=== PATIENT | male | born 1945 | race Caucasian/White ===

== ENCOUNTER 2017-01-02 22:02 | Inpatient (IN) | payer OTHER ==
[2017-01-02] MEDS ORDERED: CARDIZEM INJ 50 MG VIAL IVP ONE (22:29)
[2017-01-02] MEDS ORDERED: CARDIZEM INJ 50 MG VIAL ONE (22:30)
[2017-01-02] MEDS ORDERED: CARDIZEM INJ 125 MG VIAL 125 MG in NS 100 ML IV 100 ML IV PRN (22:30)
--- NOTE | 2017-01-02 22:31 | DR.GENAD ---
HPI - PCP Primary Care Physician: monae - Complaint/Symptoms Chief Complaint:: fluttering in chest, weakness Self Treatment fo Chief Complaint: patient hazs taken 3 low dose aspirin and a tylenol for a headache - Nurses notes reviewed Nurses Notes Review: Yes - Source History Provided: Patient - Mode of Arrival Mode of Arrival: Ambulatory - Timing Onset of Chief Complaint: 01/02/17 Came on: Suddenly - Duration Duration: Constant Duration: Minutes - Location Location: chest - Severity Severity: Moderate - Modifying Factors Improves:: oxygen - Associated Signs and Symptoms Associated Signs and Symptoms: dyspnea - Other History Other History: atrial fibrillation PMH - PMH Past Medical History: Yes Past Medical History: Hypertension, Hypothyroidism, Sleep Apnea Past Surgical History: Yes Surgical History: Ortho Surgery, Tonsillectomy Past Surgical History Comment: joint implant in left great toe, surgery on right big toe, right shoulder 3 years ago, right knee replacement 8.5 years agoacl replaced 20 years ago - Family History History of Family Medical Conditions: Yes Family Medical History: Diabetes Mellitus, Cancer, [place], Coronary Artery Disease, Hypertension - Social History Does patient currently use any type of tobacco product: No Have you used tobacco products in the last 12 months: No Type of Tobacco Use: None Does any household member use tobacco: No Alcohol Use: None Do you use any recreational Drugs:: No Lives With: Family Lives Where: Home - infectious screening In the last 2 months have you had wt loss of >10#?: NO Have you had fever, night sweats or hemotysis?: No Have you traveled outside the country in the last 6 months?: No Isolation: Standard ROS - Review of Systems Constitutional: No Symptoms Reported Eyes: No Symptoms Reported ENTM: No Symptoms Reported Respiratoy: No Symptoms Reported Cardiovascular: Palpitations Gastrointestinal/Abdominal: No Symptoms Reported Genitourinary: No Symptoms Reported Neurological: No Symptoms Reported Musculoskeletal: No Symptoms Reported Integumentary: No Symptoms Reported Hematologic/Lymphatic: No Symptoms Reported Endocrine: No Symptoms Reported Psychiatric: No Symptoms Reported All Other Systems: Reviewed and Negative PE - Vital Signs Vitals: Blood Pressure [Right Arm] 116/73 Blood Pressure 171/101 - General Limitations: No Limitations General Appearance: Alert - Head Head Exam: Normal Inspection - Eyes Eye exam: Normal Appearance, EOMI. negative: Scleral Icterus, Conjunctival Injection - ENT ENT Exam: Normal Exam External Ear Exam: Normal External Inspection Nose Exam: Normal Nose Exam Mouth Exam: Normal Inspection Throat Exam: Normal Inspection - Neck Neck Exam: Normal Inspection, Full ROM - Chest Chest Inspection: Normal Inspection, Symmetric Chest Wall Rise. negative: Tenderness - Respiratory Respiratory Exam: Normal Lung Sounds Bilat. negative: Accessory Muscle Use, Respiratory Distress Respiratory Exam: Bilateral Clear to Auscultation - Cardiovascular Cardiovascular Exam: Tachycardia - Abdominal Exam Abdominal Exam: Normal Inspection, Normal Bowel Sounds, Soft - Extremities Extremities Exam: Normal Inspection - Back Back Exam: Normal Inspection, Full ROM - Neurologic Neurological Exam: Alert, Oriented X3, CN II-XII Intact - Psychiatric Psychiatric Exam: Normal Affect - Skin Skin Exam: Intact, Normal Color Course - Consultation Called: 23:40 Call Returned: 23:41 Consultation Comments: discussed with observation diltiazem ROR - Labs Reviewed Result Diagrams: 01/02/17 22:45 01/02/17 22:45 Laboratory: WBC 6.5 X10^3/uL (3.6-10.0) 01/02/17 22:45 RBC 4.59 X10^6/uL (4.7-6.0) L 01/02/17 22:45 Hgb 14.9 g/dL (13.5-18.0) 01/02/17 22:45 Hct 42.3 % (42.0-54.0) 01/02/17 22:45 MCV 92.2 fL (80.0-100.0) 01/02/17 22:45 MCH 32.5 pg (27.0-34.0) 01/02/17 22:45 MCHC 35.3 g/dL (33.0-35.0) H 01/02/17 22:45 RDW 13.8 % (11.6-16.5) 01/02/17 22:45 Plt Count 191 X10^3/uL (150.0-450.0) 01/02/17 22:45 MPV 7.8 fL (7.4-11.0) 01/02/17 22:45 Neut % 41.7 % (42.0-75.0) L 01/02/17 22:45 Lymph % 40.1 % (21.0-51.0) 01/02/17 22:45 [place] % 11.1 % (0.0-13.0) 01/02/17 22:45 Eos % 6.4 % (0.9-2.9) H 01/02/17 22:45 Baso % 0.7 % (0.2-1.0) 01/02/17 22:45 Neut # 2.7 x10^3/uL (2.2-4.8) 01/02/17 22:45 Lymph # 2.6 X10^3/uL (1.3-2.9) 01/02/17 22:45 [place] # 0.7 x10^3/uL (0.3-0.8) 01/02/17 22:45 Eos # 0.4 x10^3/uL (0.0-0.2) H 01/02/17 22:45 Baso # 0.0 X10^3/uL (0.0-0.1) 01/02/17 22:45 Absolute Nucleated RBC 0.0 /100WBC 01/02/17 22:45 INR Target Range - 01/02/17 22:45 INR 1.00 (0.8-1.3) 01/02/17 22:45 PTT 31.1 SECONDS (22.9-36.5) 01/02/17 22:45 PTT Comment - 01/02/17 22:45 Sodium 144 mmol/L (136-145) 01/02/17 22:45 Corrected Sodium TNP 01/02/17 22:45 Potassium 4.2 mmol/L (3.5-5.1) 01/02/17 22:45 Chloride 108 mmol/L (98-107) H 01/02/17 22:45 Carbon Dioxide 27.6 mmol/L (21-32) 01/02/17 22:45 BUN 17 mg/dL (7-18) 01/02/17 22:45 Creatinine 1.38 mg/dL (0.70-1.30) H 01/02/17 22:45 Est GFR (MDRD) Af Amer > 60 (>60) 01/02/17 22:45 Est GFR (MDRD) Non-Af 54 (>60) L 01/02/17 22:45 Glucose 92 mg/dL (65-99) 01/02/17 22:45 Calcium 9.2 mg/dL (8.5-10.1) 01/02/17 22:45 Corrected Calcium TNP 01/02/17 22:45 Magnesium 1.8 mg/dL (1.7-2.9) 01/02/17 22:45 Total Bilirubin 0.50 mg/dL (0.2-1.0) 01/02/17 22:45 AST 24 Units/L (15-37) 01/02/17 22:45 ALT 32 Units/L (12-78) 01/02/17 22:45 Alkaline Phosphatase 79 Units/L (46-116) 01/02/17 22:45 Creatine Kinase 136 Units/L (39-308) 01/02/17 22:45 CK-MB (CK-2) < 1.0 ng/mL (0-4.0) 01/02/17 22:45 CK/CKMB % Calc 0.7 % (<4) 01/02/17 22:45 Troponin I < 0.02 ng/mL (0-1.5) 01/02/17 22:45 Total Protein 7.0 g/dL (6.4-8.2) 01/02/17 22:45 Albumin 3.4 g/dL (3.4-5.0) 01/02/17 22:45 Globulin 3.6 g/dL (2.5-4.5) 01/02/17 22:45 Albumin/Globulin Ratio 0.9 Ratio (1.1-2.1) L 01/02/17 22:45 - XRAY XRAY Interpreted by: Self XRAY Findings: Chest: normal - EKG Rate: 120 [place]: Normal Rhythm: Afib Block: None ST: Nonsp - Diagnosis Discharge Problem: Atrial fibrillation Qualifiers: Atrial fibrillation type: paroxysmal Qualified Code(s): I48.0 - Paroxysmal atrial fibrillation - Discharge Plan Condition: Stable - Follow ups/Referrals Follow ups/Referrals: BARBARA BHATTI [Primary Care Provider] - 3 days - Instructions
[2017-01-02] MEDS ORDERED: NS 100 ML IV 100 ML IV ONE (22:47)
[2017-01-02] MEDS ORDERED: CARDIZEM INJ 125 MG VIAL ONE (22:47)
[2017-01-02 22:59] LABS: BASOPHILS % (AUTO) 0.7 % (0.2-1.0); EOSINOPHILS # (AUTO) 0.4 x10^3/uL (0.0-0.2); EOSINOPHILS % (AUTO) 6.4 % (0.9-2.9); HEMATOCRIT 42.3 % (42.0-54.0); HEMOGLOBIN 14.9 g/dL (13.5-18.0); LYMPHOCYTES # (AUTO) 2.6 X10^3/uL (1.3-2.9); LYMPHOCYTES % (AUTO) 40.1 % (21.0-51.0); MEAN CORPUSCULAR HEMOGLOBIN 32.5 pg (27.0-34.0); MEAN CORPUSCULAR HGB CONC 35.3 g/dL (33.0-35.0); MEAN CORPUSCULAR VOLUME 92.2 fL (80.0-100.0); MEAN PLATELET VOLUME 7.8 fL (7.4-11.0); MONOCYTES # (AUTO) 0.7 x10^3/uL (0.3-0.8); MONOCYTES % (AUTO) 11.1 % (0.0-13.0); NEUTROPHILS # (AUTO) 2.7 x10^3/uL (2.2-4.8); NEUTROPHILS % (AUTO) 41.7 % (42.0-75.0); PLATELET COUNT 191 X10^3/uL (150.0-450.0); RED BLOOD COUNT 4.59 X10^6/uL (4.7-6.0); RED CELL DISTRIBUTION WIDTH 13.8 % (11.6-16.5); WHITE BLOOD COUNT 6.5 X10^3/uL (3.6-10.0)
[2017-01-02] MEDS ORDERED: NS 1000 ML 1,000 ML IV SCH (23:00)
[2017-01-02 23:16] LABS: BLOOD UREA NITROGEN 17 mg/dL (7-18); CALCIUM 9.2 mg/dL (8.5-10.1); CARBON DIOXIDE 27.6 mmol/L (21-32); CHLORIDE 108 mmol/L (98-107); CREATININE 1.38 mg/dL (0.70-1.30); GLUCOSE 92 mg/dL (65-99); SODIUM 144 mmol/L (136-145); TROPONIN I < 0.02 ng/mL (0-1.5); eGFR BLACK RACES > 60 (>60); eGFR NON BLACK RACES 54 (>60)
[2017-01-02 23:19] LABS: ALANINE AMINOTRANSFERASE 32 Units/L (12-78); ALBUMIN 3.4 g/dL (3.4-5.0); ALKALINE PHOSPHATASE 79 Units/L (46-116); ASPARTATE AMINO TRANSFERASE 24 Units/L (15-37); CKMB % 0.7 % (<4); CREATINE KINASE 136 Units/L (39-308); CREATINE KINASE MB < 1.0 ng/mL (0-4.0); MAGNESIUM 1.8 mg/dL (1.7-2.9)
--- NOTE | 2017-01-02 23:41 | RAD ---
HISTORY: 71-year-old male with shortness of breath. Study: Single frontal view of the chest. Comparison: Chest radiographs July 17, 2015 Findings: The trachea is midline. The cardiac silhouette is stable. Low lung volumes without focal consolida tion, effusion or pneumothorax. The bony thorax is unremarkable. IMPRESSION: 1. No acute cardiopulmonary disease. Reported By:
[2017-01-03] MEDS ORDERED: TYLENOL 325 MG TAB PO PRN (00:45)
[2017-01-03 00:54] VITALS: BMI 27.3
[2017-01-03 05:31] LABS: CHOL/HDL RATIO 5.8 (0.0-5.0); CHOLESTEROL 202 mg/dL (0-200); HDL CHOLESTEROL 35 mg/dL (40-60); TRIGLYCERIDES 171 mg/dL (0-150); TROPONIN I < 0.02 ng/mL (0-1.5)
[2017-01-03 10:02] VITALS: BP 112/55
--- NOTE | 2017-01-03 12:28 | DR.CARTERS ---
Short Stay Summary - Short Stay Summary for: Short Stay Summary for Date of:: 01/03/17 - Admission Date Date of Admission: 01/02/17 - Discharge Date Discharge Date: 01/03/17 - Admission Diagnoses (1) Atrial fibrillation Status: Acute (2) Chest pain Status: Acute (3) CHF (congestive heart failure) Status: Chronic (4) Essential hypertension Status: Chronic - Hospital Course Hospital Course: Patient is a 71yo male who presented to the emergency room with complaints chest fluttering and weakness, Patient states he also has a headache for which he took three low dose aspirin and Tylenol. Patient has a history of hypertension, hypothyroidism, sleep apnea and cardiac arrhythmia. On arrival to the ER EKG reveal atrial fibrillation with a rate of 120, patient was started on a Cardizem drip. Vitals sign on arrival 98.5, 144, 16, 98% 135/90. Chest xray showed no acute cardiopulmonary disease. Labs were within normal limits with the exception of RBC 4.59, MCHC 35.3, Neut% 41.7, Eos% 6.4, Eos# 0.4, Chloride 108, Creatinine 1.38, Est GFR 54, Albumin/Globulin Ratio 0.9. Pateint was admitted with CHF, Chest Pain and atrial fibrillation. Patient started on Cardizem drip and NS @75ml/hr. at 0100 cardizem drip was able to be discontinued and heart rate came down to 60 and remained stable trough out the night. Triglycerides 171, Cholesterol 202, LDL 133, HDL 35. Vital signs this am are 98.7, 92, 20, 96%, 126/70. We are going to let patient go home and he states he is feeling much better. Patient is discharged in stable condition and is to follow up with his primary care provider in 1 week. He is to continue his home medications. - Discharge Medications Discharge Medications: Aspirin [Aspirin Adult Low Dose] 162 mg PO DAILY 01/03/17 [History] - Discharge Plan Disposition: 01 HOME, SELF-CARE Condition: Stable - Follow up/Referrals Follow up/Referrals: BARBARA BHATTI [Nurse Practitioner] - 01/10/17 9:00 am - Instructions Instructions: Nonspecific Chest Pain, [id number], Hypertension, [id number] , Heart Failure, [id number], Managing Your High Blood Pressure, Atrial Fibrillation Additional Instructions: Follow up with PCP in 1 week Forms: Patient Portal
== END 2017-01-03 10:40 | disposition home or self-care (01) | DRG 310 ==
LOC: ER 22:21 → ICU 23:43
PROVIDERS: ADMIT Internal Medicine; ATTEND Internal Medicine
DX: I48.0 Paroxysmal atrial fibrillation (principal); I10 Essential (primary) hypertension; E03.8 Other specified hypothyroidism; R07.89 Other chest pain; I50.9 Heart failure, unspecified; R53.1 Weakness; R51 Headache; R94.4 Abnormal results of kidney function studies
CPT/HCPCS: 36415; 71010; 80053; 80061; 82550; 82553; 83735; 84484; 85025; 85610; 85730; 93005; 93010; 93041; 96365; 96367; 96374; 96375; 99285; A4216; A4222; J3490

== ENCOUNTER 2017-01-12 05:00 | Emergency (ER) | payer OTHER ==
[2017-01-12 05:19] VITALS: BMI 26.6
--- NOTE | 2017-01-12 06:21 | DR.GENAD ---
HPI - PCP Primary Care Physician: LAWS - Complaint/Symptoms Chief Complaint Doctors Comments: Patient with history of A Fib on cardizem 180 and xarelto 10mg daily. Patient states that prior to being at the hospital he could tell that he was in A Fib but now his heart rate in in the 70s. He has been on medicatin now for three days. Chief Complaint:: POSS. A-FIB, DULL HEADACHE, WEAKNESS, HIGH BLOOD PRESSURE, ERRATIC HEARTBEAT. Self Treatment fo Chief Complaint: NONE - Source History Provided: Patient - Mode of Arrival Mode of Arrival: Ambulatory - Timing Onset of Chief Complaint: 01/12/17 PMH - PMH Past Medical History: Yes Past Medical History: Hypertension, Hypothyroidism, Sleep Apnea Past Medical History Comment: A-FIB Past Surgical History: Yes Surgical History: Ortho Surgery, Tonsillectomy, Other - Family History History of Family Medical Conditions: Yes Family Medical History: Diabetes Mellitus, Cancer, [place], Coronary Artery Disease, Hypertension - Social History Does patient currently use any type of tobacco product: No Have you used tobacco products in the last 12 months: No Type of Tobacco Use: None Does any household member use tobacco: No Alcohol Use: Rarely Do you use any recreational Drugs:: No Lives With: Spouse Lives Where: Home - infectious screening In the last 2 months have you had wt loss of >10#?: NO Have you had fever, night sweats or hemotysis?: No Have you traveled outside the country in the last 6 months?: No Isolation: Standard ROS - Review of Systems Eyes: No Symptoms Reported ENTM: No Symptoms Reported Respiratoy: No Symptoms Reported Cardiovascular: No Symptoms Reported Gastrointestinal/Abdominal: No Symptoms Reported Genitourinary: No Symptoms Reported Neurological: No Symptoms Reported Musculoskeletal: No Symptoms Reported Integumentary: No Symptoms Reported Hematologic/Lymphatic: No Symptoms Reported Endocrine: No Symptoms Reported Psychiatric: No Symptoms Reported All Other Systems: Reviewed and Negative PE - Vital Signs Vitals: Temperature 97.7 F Pulse Rate 82 Respiratory Rate 20 Blood Pressure [Left Arm] 112/55 Blood Pressure [Right Arm] 116/73 Blood Pressure 131/71 O2 Sat by Pulse Oximetry 98 - General Limitations: No Limitations General Appearance: Alert, In No Apparent Distress - Head Head Exam: Normal Inspection, Atraumatic - Eyes Eye exam: Normal Appearance, PERRL, EOMI - ENT ENT Exam: Normal Exam External Ear Exam: Normal External Inspection TM/Canal Exam: Bilateral Normal Nose Exam: Normal Nose Exam Mouth Exam: Normal Inspection Throat Exam: Normal Inspection - Neck Neck Exam: Normal Inspection, Full ROM - Chest Chest Inspection: Normal Inspection - Respiratory Respiratory Exam: Normal Lung Sounds Bilat Respiratory Exam: Bilateral Clear to Auscultation - Cardiovascular Cardiovascular Exam: Regular Rate, Normal Rhythm - Abdominal Exam Abdominal Exam: Normal Inspection, Normal Bowel Sounds Abdominal Tenderness: negative: RUQ, RLQ, LUQ, LLQ, Epigastrium, Suprapubic, Diffuse, Mild, Moderate, Severe, Other - Extremities Extremities Exam: Normal Inspection, Full ROM - Back Back Exam: Normal Inspection, Full ROM - Neurologic Neurological Exam: Alert, Oriented X3, CN II-XII Intact - Psychiatric Psychiatric Exam: Normal Affect, Normal Mood - Skin Skin Exam: Warm, Dry, Intact Course - Treatment Treatment: EKG monitored throughout ED - Reevaluation 1st: Improved - Diagnosis Discharge Problem: History of atrial fibrillation - Discharge Plan Condition: Stable - Follow ups/Referrals Follow ups/Referrals: BRIGITTE BARRETO [Primary Care Provider] - 3 days - Instructions
[2017-01-12 06:36] VITALS: BP 116/77
== END 2017-01-12 06:35 | disposition home or self-care (01) | DRG 951 ==
LOC: ER 05:00
DX: Z86.79 Personal history of other diseases of the circulatory system (principal); R53.1 Weakness; R00.8 Other abnormalities of heart beat; Z79.899 Other long term (current) drug therapy
CPT/HCPCS: 99281; 99282

== ENCOUNTER 2020-01-14 16:40 | Inpatient (IN) ==
[2020-01-14] MEDS ORDERED: TUSSIONEX PENNKINETIC SUSP PO PRN (17:17)
[2020-01-14] MEDS ORDERED: NS 1/2 1000 ML IV 1,000 ML IV ONE (17:41)
[2020-01-14] MEDS: NS 1/2 1000 ML IV 1,000 ML IV SCH (18:18)
[2020-01-14] MEDS: VSL#3 PO SCH (18:19)
[2020-01-14] MEDS: ROBITUSSIN DM PO SCH ×2 (18:19→21:30)
--- NOTE | 2020-01-14 18:19 | RAD ---
HISTORYSOB, COVID POSSTUDYCHEST, 1 VIEWCOMPARISONNoneFINDINGSThe trachea is midline. The cardiac silhouette is unremarkable. Hazy opacification possibly representing infiltrate is noted within the mid to lower left lung. A right-sided battery pack is noted with leads extending to the visualized right neck.IMPRESSIONLeft-sided airspace disease as noted above. Correlate clinically.Electronically signed by: PHILIP MATIAS (Jan 14, 2020 18:17:39)
[2020-01-14 18:22] VITALS: BMI 24.1
[2020-01-14] MEDS ORDERED: LEVAQUIN PREMIX IV 500 MG 500 MG/100 ML BAG IV ONE (19:00)
[2020-01-14 19:01] LABS: BASOPHILS % (AUTO) 0.4 % (0.2-1.0); HEMATOCRIT 43.4 % (42.0-54.0); HEMOGLOBIN 14.9 g/dL (13.5-18.0); LYMPHOCYTES # (AUTO) 0.7 X10^3/uL (1.3-2.9); LYMPHOCYTES % (AUTO) 11.8 % (21.0-51.0); MEAN CORPUSCULAR HEMOGLOBIN 31.7 pg (27.0-34.0); MEAN CORPUSCULAR HGB CONC 34.5 g/dL (33.0-35.0); MEAN PLATELET VOLUME 6.6 fL (7.4-11.0); MONOCYTES # (AUTO) 0.5 x10^3/uL (0.3-0.8); MONOCYTES % (AUTO) 8.7 % (0.0-13.0); NEUTROPHILS # (AUTO) 4.8 x10^3/uL (2.2-4.8); NEUTROPHILS % (AUTO) 79.1 % (42.0-75.0); PLATELET COUNT 253 X10^3/uL (150.0-450.0); RED BLOOD COUNT 4.71 X10^6/uL (4.7-6.0); WHITE BLOOD COUNT 6.1 X10^3/uL (3.6-10.0)
[2020-01-14 19:11] LABS: ALANINE AMINOTRANSFERASE 42 Units/L (12-78); ALBUMIN 3.1 g/dL (3.4-5.0); ALKALINE PHOSPHATASE 58 Units/L (46-116); ASPARTATE AMINO TRANSFERASE 50 Units/L (15-37); BLOOD UREA NITROGEN 18 mg/dL (7-18); CALCIUM 8.9 mg/dL (8.5-10.1); CARBON DIOXIDE 28.3 mmol/L (21-32); CHLORIDE 96 mmol/L (98-107); COR CA(FOR HYPOALB) 9.6 mg/dL (8.5-10.1); COR NA(FOR HYPERGLY) 133 mmol/L (136-145); CREATININE 1.42 mg/dL (0.70-1.30); SODIUM 133 mmol/L (136-145); TOTAL PROTEIN 7.8 g/dL (6.4-8.2); eGFR NON BLACK RACES 52 (>60)
[2020-01-15] MEDS: XOPENEX 1.25 MG/3 ML NEBULE NEB SCH ×4 (00:42→17:15)
[2020-01-15] MEDS ORDERED: NS 1/2 1000 ML IV 1,000 ML IV ONE ×2 (04:36→19:31)
[2020-01-15 05:01] LABS: BASOPHILS % (AUTO) 0.3 % (0.2-1.0); HEMATOCRIT 37.6 % (42.0-54.0); HEMOGLOBIN 13.3 g/dL (13.5-18.0); LYMPHOCYTES # (AUTO) 0.9 X10^3/uL (1.3-2.9); LYMPHOCYTES % (AUTO) 16.6 % (21.0-51.0); MEAN CORPUSCULAR HEMOGLOBIN 32.2 pg (27.0-34.0); MEAN CORPUSCULAR HGB CONC 35.3 g/dL (33.0-35.0); MEAN CORPUSCULAR VOLUME 91.2 fL (80.0-100.0); MEAN PLATELET VOLUME 6.8 fL (7.4-11.0); MONOCYTES # (AUTO) 0.7 x10^3/uL (0.3-0.8); MONOCYTES % (AUTO) 13.9 % (0.0-13.0); NEUTROPHILS # (AUTO) 3.6 x10^3/uL (2.2-4.8); NEUTROPHILS % (AUTO) 69.2 % (42.0-75.0); PLATELET COUNT 251 X10^3/uL (150.0-450.0); RED BLOOD COUNT 4.12 X10^6/uL (4.7-6.0); RED CELL DISTRIBUTION WIDTH 13.1 % (11.6-16.5); WHITE BLOOD COUNT 5.2 X10^3/uL (3.6-10.0)
[2020-01-15 05:13] LABS: ALANINE AMINOTRANSFERASE 38 Units/L (12-78); ALBUMIN 2.5 g/dL (3.4-5.0); ALKALINE PHOSPHATASE 48 Units/L (46-116); ASPARTATE AMINO TRANSFERASE 48 Units/L (15-37); BLOOD UREA NITROGEN 18 mg/dL (7-18); CALCIUM 8.1 mg/dL (8.5-10.1); CARBON DIOXIDE 26.2 mmol/L (21-32); CHLORIDE 97 mmol/L (98-107); COR CA(FOR HYPOALB) 9.3 mg/dL (8.5-10.1); CREATININE 1.36 mg/dL (0.70-1.30); SODIUM 131 mmol/L (136-145); TOTAL PROTEIN 6.7 g/dL (6.4-8.2); eGFR NON BLACK RACES 54 (>60)
[2020-01-15 05:20] LABS: ABG BASE EXCESS 0.9 mmol/L (-2.0-2.0); ABG HCO3 23.4 mmol/L (22-26)
[2020-01-15 05:21] LABS: ABG ALLEN TEST P
[2020-01-15] MEDS: NS 1/2 1000 ML IV 1,000 ML IV SCH ×2 (06:16→22:11)
[2020-01-15] MEDS ORDERED: LEVAQUIN PREMIX IV 250 MG 250 MG/50 ML BAG IV SCH (09:00)
[2020-01-15] MEDS ORDERED: REMDESIVIR (INVESTIGATIONAL DRUG GS-5734) 200 MG in NS 250 ML IV 250 ML IV ONE (09:00)
[2020-01-15] MEDS ORDERED: LEVAQUIN PREMIX IV 500 MG 500 MG/100 ML BAG IV SCH (09:00)
[2020-01-15] MEDS: ZITHROMAX INJ 500 MG VIAL 500 MG in NS 250 ML IV 250 ML IV SCH ×2 (09:57→10:14)
[2020-01-15] MEDS: ZOSYN VIAL 3.375 GRAMS 3.375 G in NS 100 ML IV 100 ML IV SCH ×3 (09:57→22:13)
[2020-01-15] MEDS: VSL#3 PO SCH (09:58)
[2020-01-15] MEDS: LOVENOX INJ 30 MG SYR SC SCH ×2 (09:59→21:20)
[2020-01-15] MEDS: ROBITUSSIN DM PO SCH ×4 (09:59→21:20)
[2020-01-15] MEDS: ZESTRIL TAB 10 MG PO SCH (12:08)
[2020-01-15] MEDS: SYNTHROID 50 mcg TAB PO SCH (16:56)
--- NOTE | 2020-01-15 19:23 | DR.H&P ---
H&P - History & Physical for Day of: H&P Date: 01/14/20 - Chief Complaint Chief Complaint: SOB, SALAMANCA VIRUS - History of Present Illness History of Present Illness: PT IS 74 WM ADMITTED WITH COVID 19 PNEUMONIA FAILED OUTPT TREATMENT. PT HAS PMH OF HTN AND AFIB, DX WITH COVID >1 WEEKS AGO. PT HAD INCREASED SOB, REPORTING "CANNOT GET TO BATHROOM WITHOUT GIVING OUT OF BREATH" PT CO DIARRHEA AND LOSS OF APPETITE. PT ADMITTED FOR TREATMENT OF ACUTE RESP DISTRESS RELATED TO COVID 19 - Past Medical History Past Medical History: Hypertension, Hypothyroidism, Sleep Apnea Additional Medical History: AFIB - Past Surgical History Surgical History: Ortho Surgery, Other - Family History Family Medical History: Diabetes Mellitus, Cancer, Coronary Artery Disease, Hypertension - Social History Does patient currently use any type of tobacco product: No Have you used tobacco products in the last 12 months: No Type of Tobacco Use: None Does any household member use tobacco: No Alcohol Use: None Drug Use: None - Medications Home Medications: No Known Drug Allergies Allergy (Verified 01/14/20 18:14) CONTINUE taking the following medications lisinopril 10 mg PO DAILY 01/15/20 [History] oxycodone-acetaminophen 1 tab PO Q6H PRN 01/15/20 [History] - Review of Systems Constitutional: Fever, Weakness ENT: No Symptoms Reported Respiratory: Cough, Shortness of Breath, SOB with Excertion Cardiovascular: Palpitations Gastrointestinal: Nausea, Diarrhea Genitourinary: No Symptoms Reported Musculoskeletal: Back Pain Skin: No Symptoms Reported Neurological: Weakness - Physical Exam Vital Signs: Temperature 98.2 F Pulse Rate 93 Respiratory Rate 18 Blood Pressure [Left Arm] 116/77 Blood Pressure 115/56 O2 Sat by Pulse Oximetry 97 Oriented: Normal Eyes: Normal Ear: Normal Nose: Normal Throat: Normal Respiratory: Diminished Throughout Cardiovascular: Tachycardia. negative: Edema : Normal Auscultation: Bowel Sounds: Increased Palpation: Normal Tenderness: Normal Skin: Decreased Turgur Musculoskeletal: Back:Lumbar Mood Description: Calm Affect: Anxious Speech Pattern: Clear, Appropriate - Assessment/Plan (1) Pneumonia due to COVID-19 virus Status: Acute Plan: ADMIT, IV ATBX THERAPY ON ADMISSION. OBTAIN COVID19 RESULTS FROM OUTPT SOURCE. VEERIFY HOME MEDICATION, ABG ON ADMISSION. IV HYDRATION, RESP THERAPY. SUPPLEMENTAL O2. BP CONTROL (2) COVID-19 Status: Acute (3) Atrial fibrillation Status: Acute (4) Essential hypertension Status: Chronic (5) Hypothyroidism Status: Chronic - Allergies Allergies/Adverse Reactions: Allergies Allergy/AdvReac Type Severity Reaction Status Date / Time No Known Drug Allergies Allergy Verified 01/14/20 18:14
[2020-01-15] MEDS ORDERED: XARELTO PO ONE (19:30)
[2020-01-15] MEDS: XARELTO PO SCH (22:12)
[2020-01-16] MEDS: XOPENEX 1.25 MG/3 ML NEBULE NEB SCH ×4 (01:39→17:45)
[2020-01-16] MEDS ORDERED: ZOSYN VIAL 3.375 GRAMS IV ONE (05:04)
[2020-01-16] MEDS ORDERED: NS 100 ML IV + SPIKE MINIBAG* 100 ML IV ONE (05:04)
[2020-01-16 05:47] LABS: BASOPHILS % (AUTO) 0.4 % (0.2-1.0); EOSINOPHILS % (AUTO) 0.2 % (0.9-2.9); HEMATOCRIT 38.9 % (42.0-54.0); HEMOGLOBIN 13.6 g/dL (13.5-18.0); LYMPHOCYTES # (AUTO) 0.9 X10^3/uL (1.3-2.9); LYMPHOCYTES % (AUTO) 19.9 % (21.0-51.0); MEAN CORPUSCULAR HEMOGLOBIN 32.2 pg (27.0-34.0); MEAN CORPUSCULAR HGB CONC 34.9 g/dL (33.0-35.0); MEAN CORPUSCULAR VOLUME 92.3 fL (80.0-100.0); MEAN PLATELET VOLUME 6.8 fL (7.4-11.0); MONOCYTES # (AUTO) 0.8 x10^3/uL (0.3-0.8); MONOCYTES % (AUTO) 17.6 % (0.0-13.0); NEUTROPHILS # (AUTO) 2.8 x10^3/uL (2.2-4.8); NEUTROPHILS % (AUTO) 61.9 % (42.0-75.0); PLATELET COUNT 288 X10^3/uL (150.0-450.0); RED BLOOD COUNT 4.22 X10^6/uL (4.7-6.0); RED CELL DISTRIBUTION WIDTH 13.5 % (11.6-16.5); WHITE BLOOD COUNT 4.6 X10^3/uL (3.6-10.0)
[2020-01-16 06:11] LABS: ALANINE AMINOTRANSFERASE 67 Units/L (12-78); ALBUMIN 2.4 g/dL (3.4-5.0); ALKALINE PHOSPHATASE 51 Units/L (46-116); ASPARTATE AMINO TRANSFERASE 79 Units/L (15-37); BLOOD UREA NITROGEN 15 mg/dL (7-18); CALCIUM 8.3 mg/dL (8.5-10.1); CARBON DIOXIDE 25.2 mmol/L (21-32); CHLORIDE 102 mmol/L (98-107); COR CA(FOR HYPOALB) 9.6 mg/dL (8.5-10.1); CREATININE 1.13 mg/dL (0.70-1.30); SODIUM 135 mmol/L (136-145); TOTAL PROTEIN 6.6 g/dL (6.4-8.2); eGFR NON BLACK RACES > 60 (>60)
[2020-01-16] MEDS: ZOSYN VIAL 3.375 GRAMS 3.375 G in NS 100 ML IV 100 ML IV SCH ×3 (06:44→21:00)
[2020-01-16] MEDS: REMDESIVIR (INVESTIGATIONAL DRUG GS-5734) 100 MG in NS 250 ML IV 250 ML IV SCH (09:02)
[2020-01-16] MEDS: ROBITUSSIN DM PO SCH ×4 (09:14→21:00)
[2020-01-16] MEDS: VSL#3 PO SCH (09:15)
[2020-01-16] MEDS: ZESTRIL TAB 10 MG PO SCH (09:15)
--- NOTE | 2020-01-16 09:24 | RAD ---
HISTORYSOBSTUDYCHEST, 1 [id number]/2020FINDINGSNeck stimulator again seen. Patchy bilateral multifocal pulmonary opacities are worse than prior. Stable cardiomediastinal silhouette. No sizable effusion or visible pneumothorax. No acute osseous finding. Implanted monitoring coordinator.IMPRESSIONWorsening bilateral multifocal pulmonary opacities.Electronically signed by: Mike Franco (Jan 16, 2020 09:22:23)
[2020-01-16] MEDS: ZITHROMAX INJ 500 MG VIAL 500 MG in NS 250 ML IV 250 ML IV SCH (09:32)
[2020-01-16 10:19] LABS: ABG BASE EXCESS 0.9 mmol/L (-2.0-2.0); ABG HCO3 23.8 mmol/L (22-26)
[2020-01-16] MEDS ORDERED: NORCO 5/325 MG TAB PO PRN (10:31)
[2020-01-16] MEDS: VITAMIN A PO SCH (11:40)
[2020-01-16] MEDS: VITAMIN D3 125 mcg (5,000 UNITS) PO SCH (11:41)
[2020-01-16] MEDS: NS 1/2 1000 ML IV 1,000 ML IV SCH (14:05)
[2020-01-16] MEDS: ASCORBIC ACID MULTI IV SCH ×4 (17:33→20:59)
[2020-01-16] MEDS: NS IV SCH ×4 (17:33→20:59)
[2020-01-16] MEDS: SYNTHROID 50 mcg TAB PO SCH (17:33)
[2020-01-16] MEDS: XARELTO PO SCH (21:00)
[2020-01-17] MEDS: XOPENEX 1.25 MG/3 ML NEBULE NEB SCH ×5 (01:14→18:41)
[2020-01-17] MEDS: NS 1/2 1000 ML IV 1,000 ML IV SCH ×2 (01:16→17:51)
[2020-01-17] MEDS: NS IV SCH ×8 (03:16→21:58)
[2020-01-17] MEDS: ASCORBIC ACID MULTI IV SCH ×8 (03:16→21:58)
[2020-01-17 05:10] LABS: BASOPHILS % (AUTO) 0.4 % (0.2-1.0); EOSINOPHILS % (AUTO) 0.2 % (0.9-2.9); HEMOGLOBIN 12.5 g/dL (13.5-18.0); LYMPHOCYTES # (AUTO) 1.1 X10^3/uL (1.3-2.9); LYMPHOCYTES % (AUTO) 17.3 % (21.0-51.0); MEAN CORPUSCULAR HEMOGLOBIN 32.2 pg (27.0-34.0); MEAN CORPUSCULAR HGB CONC 34.8 g/dL (33.0-35.0); MEAN CORPUSCULAR VOLUME 92.4 fL (80.0-100.0); MEAN PLATELET VOLUME 6.8 fL (7.4-11.0); MONOCYTES # (AUTO) 1.2 x10^3/uL (0.3-0.8); MONOCYTES % (AUTO) 19.2 % (0.0-13.0); NEUTROPHILS # (AUTO) 3.8 x10^3/uL (2.2-4.8); NEUTROPHILS % (AUTO) 62.9 % (42.0-75.0); PLATELET COUNT 293 X10^3/uL (150.0-450.0); RED CELL DISTRIBUTION WIDTH 13.1 % (11.6-16.5); WHITE BLOOD COUNT 6.1 X10^3/uL (3.6-10.0)
[2020-01-17 05:25] LABS: ALANINE AMINOTRANSFERASE 60 Units/L (12-78); ALBUMIN 2.2 g/dL (3.4-5.0); ALKALINE PHOSPHATASE 49 Units/L (46-116); ASPARTATE AMINO TRANSFERASE 60 Units/L (15-37); BLOOD UREA NITROGEN 11 mg/dL (7-18); CARBON DIOXIDE 24.6 mmol/L (21-32); CHLORIDE 102 mmol/L (98-107); COR CA(FOR HYPOALB) 9.4 mg/dL (8.5-10.1); CREATININE 1.05 mg/dL (0.70-1.30); SODIUM 135 mmol/L (136-145); TOTAL PROTEIN 6.1 g/dL (6.4-8.2); eGFR NON BLACK RACES > 60 (>60)
[2020-01-17] MEDS: ZOSYN VIAL 3.375 GRAMS 3.375 G in NS 100 ML IV 100 ML IV SCH ×3 (06:01→21:59)
--- NOTE | 2020-01-17 07:27 | RAD ---
HISTORYSOBSTUDYAP [id number]/2020FINDINGSContinued normal heart size. Diffuse interstitial process in the rig ht lung with more localized airspace process in the periphery of the left lung. There is no evidence for complicating pneumothorax or developing pleural effusion.IMPRESSIONConsidering technical differen ce, no change since 1 day prior. Persistent pulmonary densities consistent with multifocal inflammato ry process.Electronically signed by: DAHIANA WALLACE (Jan 17, 2020 07:26:58)
[2020-01-17 08:27] LABS: ABG ALLEN TEST POS; ABG BASE EXCESS 0.6 mmol/L (-2.0-2.0); ABG HCO3 24.5 mmol/L (22-26)
[2020-01-17] MEDS: ZESTRIL TAB 10 MG PO SCH (09:58)
[2020-01-17] MEDS: VITAMIN D3 125 mcg (5,000 UNITS) PO SCH (09:59)
[2020-01-17] MEDS: VSL#3 PO SCH (09:59)
[2020-01-17] MEDS: VITAMIN A PO SCH (10:01)
[2020-01-17] MEDS: ROBITUSSIN DM PO SCH ×4 (10:01→21:58)
[2020-01-17] MEDS: REMDESIVIR (INVESTIGATIONAL DRUG GS-5734) 100 MG in NS 250 ML IV 250 ML IV SCH (11:05)
[2020-01-17] MEDS: ZITHROMAX INJ 500 MG VIAL 500 MG in NS 250 ML IV 250 ML IV SCH ×2 (11:30→12:15)
[2020-01-17] MEDS ORDERED: NS 1/2 1000 ML IV 1,000 ML IV ONE (17:45)
[2020-01-17] MEDS: SYNTHROID 50 mcg TAB PO SCH (17:51)
[2020-01-17] MEDS ORDERED: NS 100 ML IV 200 ML IV ONE (21:35)
[2020-01-17] MEDS: XARELTO PO SCH (21:59)
[2020-01-17] MEDS ORDERED: NS 1/2 1000 ML IV 0 ML IV ONE (22:50)
[2020-01-17] MEDS ORDERED: ASCORBIC ACID INJ MULTI-DOSE VIAL ONE (23:08)
[2020-01-18] MEDS ORDERED: ASCORBIC ACID INJ MULTI-DOSE VIAL ONE ×2 (03:36→10:01)
[2020-01-18] MEDS: NS IV SCH ×6 (03:56→14:10)
[2020-01-18] MEDS: ASCORBIC ACID MULTI IV SCH ×6 (03:56→14:10)
[2020-01-18] MEDS: XOPENEX 1.25 MG/3 ML NEBULE NEB SCH ×5 (05:18→17:05)
[2020-01-18] MEDS: NS 1/2 1000 ML IV 1,000 ML IV SCH (05:25)
[2020-01-18 05:34] LABS: BASOPHILS % (AUTO) 0.5 % (0.2-1.0); EOSINOPHILS % (AUTO) 0.4 % (0.9-2.9); HEMATOCRIT 34.1 % (42.0-54.0); LYMPHOCYTES # (AUTO) 0.9 X10^3/uL (1.3-2.9); LYMPHOCYTES % (AUTO) 12.7 % (21.0-51.0); MEAN CORPUSCULAR HEMOGLOBIN 32.4 pg (27.0-34.0); MEAN CORPUSCULAR HGB CONC 35.1 g/dL (33.0-35.0); MEAN CORPUSCULAR VOLUME 92.3 fL (80.0-100.0); MEAN PLATELET VOLUME 6.8 fL (7.4-11.0); MONOCYTES # (AUTO) 1.3 x10^3/uL (0.3-0.8); MONOCYTES % (AUTO) 18.9 % (0.0-13.0); NEUTROPHILS # (AUTO) 4.7 x10^3/uL (2.2-4.8); NEUTROPHILS % (AUTO) 67.5 % (42.0-75.0); PLATELET COUNT 313 X10^3/uL (150.0-450.0); RED BLOOD COUNT 3.69 X10^6/uL (4.7-6.0); RED CELL DISTRIBUTION WIDTH 13.3 % (11.6-16.5)
[2020-01-18 05:39] LABS: ALANINE AMINOTRANSFERASE 53 Units/L (12-78); ALBUMIN 2.1 g/dL (3.4-5.0); ALKALINE PHOSPHATASE 50 Units/L (46-116); ASPARTATE AMINO TRANSFERASE 51 Units/L (15-37); BLOOD UREA NITROGEN 10 mg/dL (7-18); CALCIUM 7.9 mg/dL (8.5-10.1); CARBON DIOXIDE 23.9 mmol/L (21-32); CHLORIDE 103 mmol/L (98-107); COR CA(FOR HYPOALB) 9.4 mg/dL (8.5-10.1); CREATININE 0.97 mg/dL (0.70-1.30); SODIUM 135 mmol/L (136-145); TOTAL PROTEIN 5.8 g/dL (6.4-8.2); eGFR NON BLACK RACES > 60 (>60)
[2020-01-18] MEDS: ZOSYN VIAL 3.375 GRAMS 3.375 G in NS 100 ML IV 100 ML IV SCH ×2 (06:36→15:20)
[2020-01-18] MEDS: VITAMIN D3 125 mcg (5,000 UNITS) PO SCH (08:30)
[2020-01-18] MEDS: ZESTRIL TAB 10 MG PO SCH (08:30)
[2020-01-18] MEDS: VSL#3 PO SCH (08:30)
[2020-01-18] MEDS: ROBITUSSIN DM PO SCH ×3 (08:30→17:03)
[2020-01-18] MEDS: VITAMIN A PO SCH (09:02)
[2020-01-18] MEDS: ZITHROMAX INJ 500 MG VIAL 500 MG in NS 250 ML IV 250 ML IV SCH (09:18)
[2020-01-18] MEDS: REMDESIVIR (INVESTIGATIONAL DRUG GS-5734) 100 MG in NS 250 ML IV 250 ML IV SCH (12:30)
[2020-01-18] MEDS: SYNTHROID 50 mcg TAB PO SCH (16:40)
[2020-01-18 17:38] VITALS: BP 147/67
== END 2020-01-18 18:45 | disposition home or self-care (01) | DRG 177 ==
LOC: ICU 17:05
PROVIDERS: ADMIT Internal Medicine; ATTEND Internal Medicine
CPT/HCPCS: 36415; 36600; 71010; 71045; 80053; 82728; 82803; 85025; 86140; 87040; 93005; 94640; 97162; 97530; A4222; J0456; J1650; J1956; J2543; J7050

== ENCOUNTER 2025-03-04 15:32 | Observation (INO) ==
--- NOTE | 2025-03-04 16:31 | DR.GENAD ---
HPI Time Seen Time Seen by Provider: 03/04/25 16:13 PCP Primary Care Physician: Art Bhatti Complaint/Symptoms Chief Complaint Doctors Comments: 79 yo M, hx of afib with prior wathcman procedure, c/o mild confusion last night, this am had expressive aphasia. states pt had extremely diffult time putting sentences together this am, markedly improved by my exam. Denies unilateral weakness. Denies other complaints. Chief Complaint:: Pt presents to ED ambulatory with his ; saw PCP today and states "Art thinks I had a mini stroke". PCP sent to ER for "CT scan of my brain". Pt states pt slept most of day yesterday, more naps than usual for him; she states pt denied pain last night but just kept telling her he "felt bad", states he would "stare off like he wasn't there; he had a blank stare", states occasionally things he said "didn't make sense"; went to bed around 11pm, this AM woke up and didn't perform usual routine; Pt denies he remembers anything from yesterday or much from this morning. He is c/o "dull" headache at top of head. Pt states during sleep last night he moaned and talked in sleep; refused ER last night Pt having difficulty finding words today. Pt states he doesn't remember much from yesterday Self Treatment fo Chief Complaint: Pt states his last seen normal was 2 days ago. Stroke assessment performed in office was "normal" per PCP COVID-19 Coronavirus risk:travel/contact w/high risk person: No Has patient experienced Coronavirus symptoms: No Source History Provided: Patient and Significant Other Mode of Arrival Mode of Arrival: Ambulatory Timing Onset of Chief Complaint: 03/02/25 PMH PMH Past Medical History: Yes Past Medical History: Anxiety, CHF, Hypertension, Hypothyroidism and Sleep Apnea Past Medical History Comment: Silvestre Past Surgical History: Yes Surgical History: Ortho Surgery and Other Past Surgical History Comment: watchman Family History History of Family Medical Conditions: Yes Family Medical History: Diabetes Mellitus, Cancer, Coronary Artery Disease and Hypertension Social History Does patient currently use any type of tobacco product: No Have you used tobacco products in the last 12 months: No Type of Tobacco Use: None Does any household member use tobacco: No Alcohol Use: None Do you use any recreational Drugs:: No Lives With: Spouse Lives Where: Home Travel Risk Coronavirus risk:travel/contact w/high risk person: No Has patient experienced Coronavirus symptoms: No Infectious screening In the last 2 months have you had wt loss of >10#?: NO Have you had fever, night sweats or hemotysis?: No Have you traveled outside the country in the last 6 months?: No Isolation: Standard ROS Review of Systems Neurological: Speech Problem All Other Systems: Reviewed and Negative PE Vital Signs Vitals: Vital Signs Temperature 98.7 F Pulse Rate 83 Pulse Rate 79 Pulse Rate 79 Pulse Rate 82 Pulse Rate 78 Pulse Rate 80 Pulse Rate 81 Pulse Rate 80 Pulse Rate 88 Pulse Rate 79 Pulse Rate 80 Pulse Rate 83 Respiratory Rate 19 Respiratory Rate 18 Respiratory Rate 18 Respiratory Rate 24 Respiratory Rate 18 Respiratory Rate 17 Respiratory Rate 19 Respiratory Rate 21 Respiratory Rate 30 Respiratory Rate 18 Respiratory Rate 21 Respiratory Rate 18 Blood Pressure 150/67 Blood Pressure 149/66 Blood Pressure 137/62 Blood Pressure 145/67 Blood Pressure 165/75 Blood Pressure 165/75 Blood Pressure 126/58 O2 Sat by Pulse Oximetry 99 O2 Sat by Pulse Oximetry 95 O2 Sat by Pulse Oximetry 94 O2 Sat by Pulse Oximetry 97 O2 Sat by Pulse Oximetry 95 O2 Sat by Pulse Oximetry 97 O2 Sat by Pulse Oximetry 98 O2 Sat by Pulse Oximetry 96 O2 Sat by Pulse Oximetry 97 O2 Sat by Pulse Oximetry 92 O2 Sat by Pulse Oximetry 97 O2 Sat by Pulse Oximetry 96 General Limitations: No Limitations General Appearance: Alert and In No Apparent Distress Head Head Exam: Normal Inspection Eyes Eye exam: Normal Appearance ENT ENT Exam: Normal Exam External Ear Exam: Normal External Inspection TM/Canal Exam: Bilateral: Normal Nose Exam: Normal Nose Exam Mouth Exam: Normal Inspection Throat Exam: Normal Inspection Neck Neck Exam: Normal Inspection Chest Chest Inspection: Normal Inspection Respiratory Respiratory Exam: Normal Lung Sounds Bilat Respiratory Exam: Bilateral: Clear to Auscultation Cardiovascular Cardiovascular Exam: Regular Rate and Normal Rhythm Abdominal Exam Abdominal Exam: Normal Inspection, Normal Bowel Sounds and Soft Extremities Extremities Exam: Normal Inspection Back Back Exam: Normal Inspection Neurologic Neurological Exam: Alert and Oriented X3 Psychiatric Psychiatric Exam: Normal Affect and Normal Mood Skin Skin Exam: Warm, Dry, Intact and Normal Color ROR Labs Reviewed Laboratory Results Reviewed?: Yes 03/04/25 16:41 03/04/25 16:41 Laboratory: WBC 7.4 X10^3/uL (3.6-10.0) 03/04/25 16:41 RBC 4.51 X10^6/uL (4.7-6.0) L 03/04/25 16:41 Hgb 14.6 g/dL (13.5-18.0) 03/04/25 16:41 Hct 41.6 % (42.0-54.0) L 03/04/25 16:41 MCV 92.2 fL (80.0-100.0) 03/04/25 16:41 MCH 32.4 pg (27.0-34.0) 03/04/25 16:41 MCHC 35.1 g/dL (33.0-35.0) H 03/04/25 16:41 RDW 13.9 % (11.6-16.5) 03/04/25 16:41 Plt Count 147 X10^3/uL (150.0-450.0) L 03/04/25 16:41 Plt Count Comment Decreased (ADEQUATE) 03/04/25 16:41 MPV 7.4 fL (7.4-11.0) 03/04/25 16:41 Neut % (Auto) 61.2 % (42.0-75.0) 03/04/25 16:41 Lymph % (Auto) 17.6 % (21.0-51.0) L 03/04/25 16:41 Bibb % (Auto) 20.4 % (0.0-13.0) H 03/04/25 16:41 Eos % (Auto) 0.1 % (0.9-2.9) L 03/04/25 16:41 Baso % (Auto) 0.7 % (0.2-1.0) 03/04/25 16:41 Neut # (Auto) 4.5 x10^3/uL (2.2-4.8) 03/04/25 16:41 Lymph # (Auto) 1.3 X10^3/uL (1.3-2.9) 03/04/25 16:41 [place]b # (Auto) 1.5 x10^3/uL (0.3-0.8) H 03/04/25 16:41 Eos # (Auto) 0.0 x10^3/uL (0.0-0.2) 03/04/25 16:41 Baso # (Auto) 0.0 X10^3/uL (0.0-0.1) 03/04/25 16:41 Absolute Nucleated RBC 0.0 /100WBC 03/04/25 16:41 Total Counted 100 03/04/25 16:41 Neutrophils % (Manual) 64 % (39-76) 03/04/25 16:41 Lymphocytes % (Manual) 16 % (13-43) 03/04/25 16:41 Monocytes % (Manual) 19 % (4-9) H 03/04/25 16:41 Eosinophils % (Manual) 1 % (0-6) 03/04/25 16:41 Plt Morphology Comment Normal (NORMAL) 03/04/25 16:41 RBC Morphology Normal (NORMAL) 03/04/25 16:41 PT 14.6 SECONDS (11.8-14.3) 03/04/25 16:41 INR Target Range - 03/04/25 16:41 INR 1.13 (0.8-1.3) 03/04/25 16:41 APTT 31.5 SECONDS (22.9-36.5) 03/04/25 16:41 PTT Comment - 03/04/25 16:41 Sodium 137 mmol/L (136-145) 03/04/25 16:41 Corrected Sodium TNP 03/04/25 16:41 Potassium 4.0 mmol/L (3.5-5.1) 03/04/25 16:41 Chloride 102 mmol/L (98-107) 03/04/25 16:41 Carbon Dioxide 30.0 mmol/L (21-32) 03/04/25 16:41 BUN 26 mg/dL (7-18) H 03/04/25 16:41 Creatinine 1.76 mg/dL (0.70-1.30) H 03/04/25 16:41 Est GFR (MDRD) Af Amer 48 (>60) L 03/04/25 16:41 Est GFR (MDRD) Non-Af 40 (>60) L 03/04/25 16:41 Glucose 86 mg/dL (65-99) 03/04/25 16:41 Calcium 8.8 mg/dL (8.5-10.1) 03/04/25 16:41 Corrected Calcium TNP 03/04/25 16:41 Magnesium 1.9 mg/dL (2.0-2.9) L 03/04/25 16:41 Total Bilirubin 1.00 mg/dL (0.2-1.0) 03/04/25 16:41 AST 24 Units/L (15-37) 03/04/25 16:41 ALT 19 Units/L (12-78) 03/04/25 16:41 Alkaline Phosphatase 56 Units/L (46-116) 03/04/25 16:41 Creatine Kinase 95 Units/L (39-308) 03/04/25 16:41 Troponin I High Sens 9.7 ng/L (4.0-60.0) 03/04/25 16:41 Total Protein 7.6 g/dL (6.4-8.2) 03/04/25 16:41 Albumin 3.9 g/dL (3.4-5.0) 03/04/25 16:41 Globulin 3.7 g/dL (2.5-4.5) 03/04/25 16:41 Albumin/Globulin Ratio 1.1 Ratio (1.1-2.1) 03/04/25 16:41 Opioid Opioid Risk Tool Age (Sarwat box if 16-45): No History of Preadolescent Sexual Abuse: No Total: 0 Total Score Risk Category: Low Risk Copyright: Osbaldo HENSON predicting aberrant behaviors Discharge Plan Diagnosis Discharge Problem: Brain TIA, Expressive aphasia Discharge Plan Patient Disposition: 09 ADMITTED INPATIENT Condition: Stable Prescriptions: No Action dicyclomine 10 mg capsule 10 mg PO QID Qty: 120 1RF Linzess 72 mcg capsule 72 mcg PO QAM Qty: 60 0RF pantoprazole 40 mg tablet,delayed release (DR/EC) 40 mg PO BID Qty: 60 0RF candesartan 16 mg tablet 16 mg PO BID levothyroxine 50 MCG tablet 50 mcg PO DAILY alprazolam 0.5 mg tablet 0.5 mg PO BID PRN metoprolol tartrate 25 mg tablet 25 mg PO BID aspirin [Aspir-81] 81 mg Tablet,Delayed Release (Dr/Ec) 81 mg PO DAILY multivitamin Tablet 1 tab PO DAILY nitroglycerin [Nitro-Patch] 0.2 mg/hr Patch 24 Hour 0.2 mg transdermal DAILY Rx Instructions: on in am for 12 hours and off for 12 hours in pm alprazolam [Xanax] 0.25 mg Tablet 0.25 mg PO BID PRN modafinil 200 mg Tablet 200 mg PO BID PRN diphenhydramine HCl [Allergy Medicine] 25 mg Tablet 25 mg PO DAILY PRN Collagen 1500 Plus C 500 mg-800 mcg- 50 mg Capsule 1 cap PO DAILY Health Concerns: Post Hospitalization: new medications and changes needed to prevent readmission or further decline. Pt educated and given instructions on all concerns. Plan of Treatment: Continue with present treatment and follow up plan. Pt is to keep follow up appointment as instructed and take medications as ordered. Orders to Discharge Patient Discharge Orders: Transfer (Routine); Ordered 03/04/25 Ordered By: Antwon Caldera Follow ups/Referrals Follow ups/Referrals: ART BHATTI [Primary Care Provider, MEDICAL] - 3 days Instructions Stand Alone Forms: Find Help Web Site, Post Hospital Follow Up Care Print Language: PU[place] ADDITIONAL NOTES Additional Notes Additional Notes: accepted by Dr Ybarra
[2025-03-04 16:54] LABS: MEAN PLATELET VOLUME 7.4 fL (7.4-11.0); RED CELL DISTRIBUTION WIDTH 13.9 % (11.6-16.5)
[2025-03-04 16:57] LABS: INR 1.13 (0.8-1.3)
[2025-03-04 17:06] LABS: CREATININE 1.76 mg/dL (0.70-1.30); eGFR NON BLACK RACES 40 (>60)
--- NOTE | 2025-03-04 17:10 | EKG ---
Test Reason : confusion Blood Pressure : */* mmHG Vent. Rate : 78 BPM Atrial Rate : 78 BPM P-R Int : 176 ms QRS Dur : 82 ms QT Int : 364 ms P-R-T Axes : 52 48 50 degrees QTc Int : 414 ms Sinus rhythm with premature supraventricular complexes Nonspecific T wave abnormality Abnormal ECG When compared with ECG of 17-AUG-2024 06:23, premature supraventricular complexes are now present Nonspecific T wave abnormality now evident in Lateral leads Confirmed by Ildefonso Silva MD ([id number]) on 03/05/2025 5:30:42 AM Referred By: Confirmed By: Ildefonso Silva MD
--- NOTE | 2025-03-04 17:21 | CT ---
EXAM: BRAIN W/O CON HISTORY: Pt states his last seen normal was 2 days ago. Stroke assessment performed in office was "normal" per PCP; COMPARISON: August 02, 2024 TECHNIQUE: Axial non-contrast images of the head were obtained with coronal and sagittal reformats provided. Radiation dose: 912.24 mGy-cm total DLP FINDINGS: No abnormal areas of acute attenuation in the brain parenchyma. [place]-white differentiation remains intact. No intracranial, extra-axial, fluid collection. No hemorrhage. Periventricular chronic microvascular disease. No mass, mass effect or midline shift. Age related brain parenchymal global atrophy. No ventriculomegaly. No acute fracture. Sinuses are well aerated. Mastoid air cells are well aerated. Globes and intra-orbital contents are unremarkable. IMPRESSION: No acute intracranial abnormality identified. THIS IS AN ELECTRONICALLY VERIFIED FINAL REPORT 03/04/2025 5:11 PM - Electronically signed by Collin Contreras MD
[2025-03-04 17:35] LABS: PLATELET MORPHOLOGY COMMENT NORMAL (NORMAL)
--- NOTE | 2025-03-04 17:37 | RAD ---
EXAM: CHEST, 1 VIEW HISTORY: Pt states his last seen normal was 2 days ago. Stroke assessment performed in office was "normal" per PCP; COMPARISON: No relevant prior studies were available for comparison at the time of interpretation. TECHNIQUE: CHEST, 1 VIEW FINDINGS: Chest: Lines and tubes: Cardiac leads overlie the chest. There is a neurostimulator projecting over the right chest. Mediastinum: Cardiac and mediastinal shadow is within normal limits for size and contour. Pulmonary vessels: No pulmonary vascular congestion. Lung french: No suspicious airspace opacity. Pleura: No effusion. No pneumothorax. Bones and soft tissues: No acute osseous or soft tissue abnormality. IMPRESSION: 1. No acute cardiopulmonary abnormality THIS IS AN ELECTRONICALLY VERIFIED FINAL REPORT 03/04/2025 5:33 PM - Electronically signed by Anthony Staples MD
[2025-03-04] MEDS ORDERED: ZOFRAN INJ 4 MG VIAL IVP PRN (20:11)
[2025-03-04] MEDS ORDERED: ALPRAZOLAM 0.25 MG PO PRN (20:11)
[2025-03-04] MEDS ORDERED: CONSULT PHARMACY - POTASSIUM & MAGNESIUM XX SCH (20:11)
[2025-03-04] MEDS ORDERED: NORCO 5/325 MG TAB PO PRN (20:11)
[2025-03-04] MEDS ORDERED: ZOFRAN TAB 4 MG PO PRN (20:11)
[2025-03-04] MEDS ORDERED: ULTRAM PO PRN (20:11)
[2025-03-04] MEDS ORDERED: MORPHINE SULFATE INJ 2 MG INJ IVP PRN (20:11)
--- NOTE | 2025-03-04 20:46 | EKG ---
Test Reason : AMS Blood Pressure : */* mmHG Vent. Rate : 81 BPM Atrial Rate : 81 BPM P-R Int : 178 ms QRS Dur : 86 ms QT Int : 360 ms P-R-T Axes : 57 29 18 degrees QTc Int : 418 ms Normal sinus rhythm Normal ECG When compared with ECG of 04-MAR-2025 17:09, (Unconfirmed) premature supraventricular complexes are no longer present Confirmed by Ildefonso Silva MD ([id number]) on 03/05/2025 5:29:45 AM Referred By: Confirmed By: Ildefonso Silva MD
[2025-03-04] MEDS: BENTYL CAP 10 MG PO SCH (22:05)
[2025-03-04] MEDS: CANDESARTAN 16 MG PO SCH (22:05)
[2025-03-04] MEDS: PROTONIX TAB 40 MG PO SCH (22:05)
[2025-03-04] MEDS: LOPRESSOR TAB 25 MG PO SCH (22:05)
[2025-03-04] MEDS: NS 1,000 ML IV 1,000 ML IV SCH (22:09)
[2025-03-05 00:51] VITALS: BMI 27.1
[2025-03-05] MEDS ORDERED: ALPRAZOLAM ODT PO PRN (04:31)
[2025-03-05] MEDS: TYLENOL 325 MG TAB PO PRN (04:35)
[2025-03-05 05:09] LABS: MEAN PLATELET VOLUME 7.5 fL (7.4-11.0); RED CELL DISTRIBUTION WIDTH 13.7 % (11.6-16.5)
[2025-03-05 05:46] LABS: CREATININE 1.41 mg/dL (0.70-1.30); eGFR NON BLACK RACES 51 (>60)
[2025-03-05 05:48] LABS: BAND NEUTROPHILS % 3 % (0-10)
[2025-03-05 05:49] LABS: PLATELET MORPHOLOGY COMMENT NORMAL (NORMAL)
[2025-03-05] MEDS ORDERED: CONSULT PHARMACY - POTASSIUM & MAGNESIUM XX SCH (06:00)
[2025-03-05] MEDS: ASPIRIN EC 81 MG PO SCH (09:59)
[2025-03-05] MEDS: MAG-OX TAB PO SCH (10:00)
[2025-03-05] MEDS: K-DUR TAB 20 MEQ PO SCH (10:00)
[2025-03-05] MEDS: ZITHROMAX INJ 500 MG VIAL 500 MG in D5W 250 ML IV 250 ML IV SCH (10:28)
[2025-03-05] MEDS ORDERED: BENTYL CAP 10 MG PO PRN (10:32)
--- NOTE | 2025-03-05 10:55 | DR.H&P ---
H&P History & Physical for Day of: H&P Date: 03/05/25 Chief Complaint Chief Complaint: TIA fever, chills History of Present Illness History of Present Illness: Patient is a 79-year-old male with a past medical history of hypertension, hypothyroidism, CHF, Watchman device, neurostimulator, RANDY, presenting after having an episode of expressive aphasia. Per patient history he does not recall what he did on March 03. He states his told him that he was kind of in a daze mental state. He did not want to go to the ER to be evaluated. The next morning she noted he had difficulty verbalizing. He then went to the ER to be evaluated but by then symptoms had resolved. This morning on exam he reports still not having those symptoms but does state that overnight he had some chills and a low-grade fever. He is also reporting a productive cough. Labs/imaging: WBC 6.7, hemoglobin 13.8, platelets 136, sodium 139, potassium 3.6, creatinine 1.41, glucose 97. CT of the brain was obtained that did not reveal any acute intracranial findings, chest x-ray was negative. Patient was admitted for TIA and possible pneumonia. Will order AIT swab and sputum culture. Will also obtain a UA and repeat chest x-ray. Will order a CTA of the head and neck for further evaluation as well as an echo. Until we get more results we will go ahead and start patient on IV azithromycin for empiric treatment. Restart home medications. Otherwise continue with current treatment plan. Continue closely monitor and follow-up labs/imaging. Time spent for clinical assessment, reviewing labs/imaging, physical exam, decision making and documentation greater than 45 mins. Past Medical History Past Medical History: Anxiety, CHF, Hypertension, Hypothyroidism and Sleep Apnea Additional Medical History: AFIB Past Surgical History Surgical History: Ortho Surgery and Other Family History Family Medical History: Diabetes Mellitus, Cancer, Coronary Artery Disease and Hypertension Social History Does patient currently use any type of tobacco product: No Have you used tobacco products in the last 12 months: No Type of Tobacco Use: None Does any household member use tobacco: No Alcohol Use: None Drug Use: None Medications Home Medications: Home Medications Medication Instructions Recorded Confirmed Type levothyroxine 50 mcg tablet 50 mcg PO DAILY 07/18/15 0 03/04/25 History aspirin 81 mg tablet,delayed 81 mg PO DAILY 06/23/23 0 03/04/25 History release metoprolol tartrate 25 mg tablet 25 mg PO BID 06/23/23 03/04/25 History candesartan 16 mg tablet 16 mg PO BID 03/11/24 History multivitamin 1 tab PO DAILY 08/17/24 08 History nitroglycerin 0.2 mg/hr 0.2 mg transdermal DAILY 09/0903/04/25 History transdermal 24 hour patch albuterol sulfate 90 mcg/actuation 2 puff inhalation P RN PRN 03/04/25 03/04/25 History aerosol inhaler alprazolam 0.5 mg tablet 0.5 mg PO BID PRN 03/04/25 0 03/04/25 History dicyclomine 10 mg capsule 10 mg PO Q6H PRN 03/04/25 History fluorouracil 5 % topical cream 1 applic topical BID 03/04/25 History fluticasone propionate 50 1 spray intranasal DAILY PRN 03/04/25 03/04/25 History mcg/actuation nasal spray,suspension nitroglycerin 0.4 mg sublingual 0.4 mg sublingual QDAY PRN 03/04/25 03/04/25 History tablet triamcinolone acetonide 0.1 % 1 applic topical BID-TID 03/04/25 03/04/25 History topical cream Allergies Allergies Allergy/AdvReac Type Severity Reaction Status Date / Time No Known Drug Allergies Allergy Verified 03/04/25 15:53 Labs 03/05/25 04:21 03/05/25 04:21 Labs: Laboratory WBC 6.7 X10^3/uL (3.6-10.0) 03/05/25 04:21 RBC 4.28 X10^6/uL (4.7-6.0) L 03/05/25 04:21 Hgb 13.8 g/dL (13.5-18.0) 03/05/25 04:21 Hct 39.3 % (42.0-54.0) L 03/05/25 04:21 MCV 92.0 fL (80.0-100.0) 03/05/25 04:21 MCH 32.4 pg (27.0-34.0) 03/05/25 04:21 MCHC 35.2 g/dL (33.0-35.0) H 03/05/25 04:21 RDW 13.7 % (11.6-16.5) 03/05/25 04:21 Plt Count 136 X10^3/uL (150.0-450.0) L 03/05/25 04:21 Plt Count Comment Decreased (ADEQUATE) 03/05/25 04:21 MPV 7.5 fL (7.4-11.0) 03/05/25 04:21 Neut % (Auto) 53.6 % (42.0-75.0) 03/05/25 04:21 Lymph % (Auto) 21.9 % (21.0-51.0) 03/05/25 04:21 [place] % (Auto) 23.3 % (0.0-13.0) H 03/05/25 04:21 Eos % (Auto) 0.2 % (0.9-2.9) L 03/05/25 04:21 Baso % (Auto) 1.0 % (0.2-1.0) 03/05/25 04:21 Neut # (Auto) 3.6 x10^3/uL (2.2-4.8) 03/05/25 04:21 Lymph # (Auto) 1.5 X10^3/uL (1.3-2.9) 03/05/25 04:21 [place] # (Auto) 1.6 x10^3/uL (0.3-0.8) H 03/05/25 04:21 Eos # (Auto) 0.0 x10^3/uL (0.0-0.2) 03/05/25 04:21 Baso # (Auto) 0.1 X10^3/uL (0.0-0.1) 03/05/25 04:21 Absolute Nucleated RBC 0.0 /100WBC 03/05/25 04:21 Total Counted 100 03/05/25 04:21 Neutrophils % (Manual) 55 % (39-76) 03/05/25 04:21 Band Neutrophils % 3 % (0-10) 03/05/25 04:21 Lymphocytes % (Manual) 28 % (13-43) 03/05/25 04:21 Monocytes % (Manual) 14 % (4-9) H 03/05/25 04:21 Eosinophils % (Manual) 1 % (0-6) 03/04/25 16:41 Plt Morphology Comment Normal (NORMAL) 03/05/25 04:21 RBC Morphology Normal (NORMAL) 03/05/25 04:21 PT 14.6 SECONDS (11.8-14.3) 03/04/25 16:41 INR Target Range - 03/04/25 16:41 INR 1.13 (0.8-1.3) 03/04/25 16:41 APTT 31.5 SECONDS (22.9-36.5) 03/04/25 16:41 PTT Comment - 03/04/25 16:41 Sodium 139 mmol/L (136-145) 03/05/25 04:21 Corrected Sodium TNP 03/05/25 04:21 Potassium 3.6 mmol/L (3.5-5.1) 03/05/25 04:21 Chloride 104 mmol/L (98-107) 03/05/25 04:21 Carbon Dioxide 29.7 mmol/L (21-32) 03/05/25 04:21 BUN 24 mg/dL (7-18) H 03/05/25 04:21 Creatinine 1.41 mg/dL (0.70-1.30) H 03/05/25 04:21 Est GFR (MDRD) Af Amer > 60 (>60) 03/05/25 04:21 Est GFR (MDRD) Non-Af 51 (>60) L 03/05/25 04:21 Glucose 97 mg/dL (65-99) 03/05/25 04:21 Calcium 8.6 mg/dL (8.5-10.1) 03/05/25 04:21 Corrected Calcium TNP 03/05/25 04:21 Magnesium 1.9 mg/dL (2.0-2.9) L 03/04/25 16:41 Total Bilirubin 0.70 mg/dL (0.2-1.0) 03/05/25 04:21 AST 25 Units/L (15-37) 03/05/25 04:21 ALT 19 Units/L (12-78) 03/05/25 04:21 Alkaline Phosphatase 54 Units/L (46-116) 03/05/25 04:21 Creatine Kinase 95 Units/L (39-308) 03/04/25 16:41 Troponin I High Sens 9.7 ng/L (4.0-60.0) 03/04/25 16:41 Total Protein 6.9 g/dL (6.4-8.2) 03/05/25 04:21 Albumin 3.4 g/dL (3.4-5.0) 03/05/25 04:21 Globulin 3.5 g/dL (2.5-4.5) 03/05/25 04:21 Albumin/Globulin Ratio 1.0 Ratio (1.1-2.1) L 03/05/25 04:21 Review of Systems Constitutional: Fever, Chills and Weakness Eyes: No Symptoms Reported ENT: No Symptoms Reported Respiratory: Cough and Sputum Cardiovascular: No Symptoms Reported Gastrointestinal: No Symptoms Reported Genitourinary: No Symptoms Reported Musculoskeletal: No Symptoms Reported Skin: No Symptoms Reported Neurological: No Symptoms Reported Physical Exam Vital Signs: Vital Signs Temperature 99.0 F Temperature 98.3 F Temperature 100.0 F Pulse Rate 76 Pulse Rate 83 Pulse Rate 74 Pulse Rate 86 Pulse Rate 88 Respiratory Rate 20 Respiratory Rate 18 Respiratory Rate 19 Respiratory Rate 17 Respiratory Rate 19 Respiratory Rate 24 Respiratory Rate 19 Blood Pressure 101/53 Blood Pressure 121/56 Blood Pressure 120/58 Blood Pressure 115/54 Blood Pressure 147/67 O2 Sat by Pulse Oximetry 96 O2 Sat by Pulse Oximetry 94 O2 Sat by Pulse Oximetry 92 O2 Sat by Pulse Oximetry 94 O2 Sat by Pulse Oximetry 97 Oriented: Normal Eyes: Normal Ear: Normal Nose: Normal Throat: Normal Respiratory: Clear Throughout Cardiovascular: Normal : Normal Auscultation: Bowel Sounds: Normal Palpation: Normal Tenderness: Normal Skin: Normal Musculoskeletal: Normal Psychiatric: Normal Mood Description: Calm and Appropriate Affect: Normal Speech Pattern: Clear and Appropriate Assessment/Plan (1) Brain TIA: Status: Acute Plan: Order CTA of the head and neck and echo. Follow-up results. (2) Expressive aphasia: Status: Acute Plan: Resolved. (3) Acute dehydration: Status: Acute Plan: IV fluids normal saline (4) Pneumonia: Qualifiers: Pneumonia type: due to unspecified organism Laterality: unspecified laterality Lung location: unspecified part of lung Qualified Code(s): J18.9 - Pneumonia, unspecified organism Status: Acute Review H&P Reviewed: Yes Patient was examined?: Yes
[2025-03-05] MEDS: NITRODUR PATCH 0.2 MG/HR TD SCH (11:56)
[2025-03-05 13:25] LABS: BLOOD/HEMOGLOBIN,URINE 3+ (NEGATIVE); LEUKOCYTE ESTERASE ,URINE NEGATIVE (NEGATIVE); NITRITES,URINE NEGATIVE (NEGATIVE)
--- NOTE | 2025-03-05 13:30 | CT ---
EXAM: CT ARTERIOGRAM HEAD WITH CONTRAST AND 3D REFORMATIONS HISTORY: TIA, HX OF APHASIA; . COMPARISON: CT dated 03/04/2025. TECHNIQUE: Axial CTA images were obtained from the skull base through the vertex of the brain after the intravenous administration of contrast. Coronal and sagittal reformatted images were included. 3D reconstructions were performed with concurrent physician supervision at a separate independent workstation and MIP images were also performed. When appropriate, NASCET criteria was used for the estimation of stenosis. All CT scans at this facility use dose modulation, iterative reconstruction, and/or weight based dosing when appropriate to reduce radiation dose to as low as reasonably achievable. FINDINGS: [place]: The anterior, middle, and posterior cerebral arteries are patent without occlusion or evidence of stenosis. 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 Normal basilar artery. origin left posterior cerebral artery is predominantly supplied by the left posterior communicating artery. No evidence of intracranial aneurysm. BRAIN: No acute intracranial hemorrhage or extra-axial fluid collection. No mass effect or midline shift. No regional areas of [place]-white differentiation loss. Mild cerebral atrophy and chronic microvascular white matter disease. BONES: Intact calvarium. Mild diffuse paranasal sinus mucosal thickening. Mastoid air cells are well-aerated. IMPRESSION: CTA of the brain is within normal limits. No evidence of large vessel occlusion or flow limiting stenosis. THIS IS AN ELECTRONICALLY VERIFIED FINAL REPORT 03/05/2025 1:26 PM - Electronically signed by Ramez Bermudez MD
[2025-03-05 13:31] LABS: APPEARANCE,URINE CLEAR (CLEAR)
[2025-03-05 13:32] LABS: SQUAMOUS EPITHELIAL CELL,UR RARE /HPF (NEGATIVE)
--- NOTE | 2025-03-05 13:32 | CT ---
EXAM: CT ARTERIOGRAM NECK WITH CONTRAST AND 3D REFORMATIONS HISTORY: TIA, HX OF APHASIA; . COMPARISON: None. TECHNIQUE: Axial CTA images were obtained from the aortic arch through the skull base after uneventful administration of contrast. Coronal, sagittal as well as 3D reformations were post processed on an independent workstation. When appropriate, NASCET criteria was used for the estimation of stenosis. All CT scans at this facility use dose modulation, iterative reconstruction, and/or weight based dosing when appropriate to reduce radiation dose to as low as reasonably achievable. FINDINGS: Left carotid: Widely patent left common carotid artery. Mixed plaque at the left carotid bifurcation and proximal left internal carotid artery without stenosis. Mid and distal left internal carotid artery is widely patent. Right carotid: Widely patent right common carotid artery. Noncalcified plaque at the right carotid bifurcation and proximal right internal carotid artery without stenosis. Mid and distal right internal carotid artery is widely patent. Vertebral arteries: No evidence of focal stenosis or occlusion. Aortic arch: Visualized aortic arch is normal caliber with moderate mixed plaque. BONES: No acute osseous findings. Moderate cervical spondylosis. ADDITIONAL FINDINGS: No acute findings in the soft tissues of the neck. Clear lung apices. IMPRESSION: No evidence of focal stenosis or occlusion in the carotid or vertebral arteries. THIS IS AN ELECTRONICALLY VERIFIED FINAL REPORT 03/05/2025 1:29 PM - Electronically signed by Ramez Bermudez MD
[2025-03-05] MEDS ORDERED: ROBITUSSIN DM PO PRN (19:38)
[2025-03-05] MEDS: CHECK PATCH XX SCH (21:13)
[2025-03-05] MEDS: REMOVE NITROGLYCERIN PATCH XX SCH (21:17)
[2025-03-05] MEDS: TUSSIONEX PENNKINETIC SUSP PO PRN (21:19)
[2025-03-06 05:28] LABS: MEAN PLATELET VOLUME 8.0 fL (7.4-11.0); RED CELL DISTRIBUTION WIDTH 14.2 % (11.6-16.5)
[2025-03-06 05:39] LABS: PLATELET MORPHOLOGY COMMENT NORMAL (NORMAL)
[2025-03-06 05:45] LABS: COR CA(FOR HYPOALB) 9.0 mg/dL (8.5-10.1); CREATININE 1.33 mg/dL (0.70-1.30); eGFR NON BLACK RACES 55 (>60)
[2025-03-06] MEDS ORDERED: CONSULT PHARMACY - POTASSIUM & MAGNESIUM XX SCH (07:00)
--- NOTE | 2025-03-06 07:36 | RAD ---
EXAMINATION: CHEST, 1 VIEW HISTORY: INCREASED TEMP, WHEEZING; . COMPARISON STUDY: Chest x-ray/ TECHNIQUE: Single frontal view of the chest FINDINGS: Lungs are expanded. Streaky bibasilar opacities. Borderline cardiac silhouette enlargement. Normal pulmonary vascular pattern. Electrical device right lower chest with wires extending cephalad along the right neck. Bones appear intact IMPRESSION: Streaky bibasilar opacities. Borderline cardiac silhouette enlargement. THIS IS AN ELECTRONICALLY VERIFIED FINAL REPORT 03/06/2025 7:31 AM - Electronically signed by Mmai Smith MD
[2025-03-06 08:03] VITALS: BP 134/61; PULSE 67; RESP 14; TEMP 98.8; O2SAT 95
[2025-03-06] MEDS: OMNIPAQUE 350 mg/mL 100 mL BTL 100 ML ONE (08:06)
[2025-03-06] MEDS: PHARMACY CONSULT XX SCH (08:07)
[2025-03-06] MEDS: MAG-OX TAB PO SCH (09:06)
--- NOTE | 2025-03-10 10:54 | W.DIS.FURT ---
Summary of Discharge Discharge Summary of Date Date of Exam: 03/06/25 Admission Date Date of Admission: 03/04/25 Admission Diagnosis Patient Problems (Updated 03/05/25 @ 10:55 by Kevin Ybarra MD) Expressive aphasia (Acute) R47.01 Brain TIA (Acute) G45.9 Hospital Course: Patient is a 79-year-old male with a past medical history of hypertension, hypothyroidism, CHF, Watchman device, neurostimulator, RANDY, admitted for TIA and pneumonia. CT of the brain was obtained that did not reveal any acute intracranial findings, chest x-ray bibasilar streaky opacities. CTA of the head and neck no evidence of large vessel occlusion or significant stenosis. Echo EF >70%. Patient received IV azithromycin for empiric treatment. Patient was back to baseline with no focal neurodeficits. AIT returned as COVID-19. Sputum culture was positive for Klebsiella oxytoca. He was discharged in stable condition. He will follow-up with a referral we will place to neurologyDrAdri Farley. Prescribed cefdinir. Instructed to follow-up with PCP in 1 week. Vital Signs: Vital Signs (72 hours) 03/04/25 15:32 03/04/25 16:11 03/04/25 16:15 Temperature 98.7 F Pulse Rate 83 80 79 Respiratory Rate 18 21 18 Blood Pressure 126/58 O2 Sat by Pulse Oximetry 96 97 92 L Oxygen Delivery Method Room Air 03/04/25 16:30 03/04/25 16:30 03/04/25 16:30 Temperature Pulse Rate 88 Respiratory Rate 30 H Blood Pressure 165/75 165/75 O2 Sat by Pulse Oximetry 97 Oxygen Delivery Method 03/04/25 16:45 03/04/25 17:00 03/04/25 17:00 Temperature Pulse Rate 80 81 Respiratory Rate 21 19 Blood Pressure 145/67 O2 Sat by Pulse Oximetry 96 98 Oxygen Delivery Method 03/04/25 17:15 03/04/25 17:30 03/04/25 17:30 Temperature Pulse Rate 80 78 Respiratory Rate 17 18 Blood Pressure 137/62 O2 Sat by Pulse Oximetry 97 95 Oxygen Delivery Method 03/04/25 17:45 03/04/25 18:00 03/04/25 18:00 Temperature Pulse Rate 82 79 Respiratory Rate 24 18 Blood Pressure 149/66 O2 Sat by Pulse Oximetry 97 94 L Oxygen Delivery Method 03/04/25 18:15 03/04/25 18:30 03/04/25 18:30 Temperature Pulse Rate 79 83 Respiratory Rate 18 19 Blood Pressure 150/67 O2 Sat by Pulse Oximetry 95 99 Oxygen Delivery Method 03/04/25 18:45 03/04/25 19:00 03/04/25 19:00 Temperature Pulse Rate 83 83 Respiratory Rate 24 20 Blood Pressure 143/62 O2 Sat by Pulse Oximetry 89 L 98 Oxygen Delivery Method 03/04/25 19:15 03/04/25 19:30 03/04/25 19:31 Temperature Pulse Rate 80 90 88 Respiratory Rate 19 23 25 H Blood Pressure O2 Sat by Pulse Oximetry 97 98 100 Oxygen Delivery Method 03/04/25 19:31 03/04/25 19:55 03/04/25 20:00 Temperature Pulse Rate Respiratory Rate Blood Pressure 141/65 165/77 O2 Sat by Pulse Oximetry Oxygen Delivery Method Room Air 03/04/25 20:01 03/04/25 21:00 03/04/25 21:01 Temperature 98.3 F Pulse Rate 91 H 90 90 Respiratory Rate 23 29 H 37 H Blood Pressure O2 Sat by Pulse Oximetry 99 95 96 Oxygen Delivery Method 03/04/25 21:05 03/04/25 21:05 03/04/25 22:00 Temperature Pulse Rate 88 Respiratory Rate 26 H Blood Pressure 166/76 157/77 O2 Sat by Pulse Oximetry 98 Oxygen Delivery Method 03/04/25 22:00 03/04/25 23:00 03/04/25 23:01 Temperature Pulse Rate 88 87 Respiratory Rate 24 23 Blood Pressure 180/80 O2 Sat by Pulse Oximetry 99 97 Oxygen Delivery Method 03/04/25 23:01 03/04/25 23:01 03/04/25 23:11 Temperature Pulse Rate 88 87 Respiratory Rate 26 H 26 H Blood Pressure 180/80 O2 Sat by Pulse Oximetry 96 99 Oxygen Delivery Method 03/04/25 23:11 03/05/25 00:00 03/05/25 00:00 Temperature Pulse Rate 89 Respiratory Rate 19 Blood Pressure 169/74 137/64 O2 Sat by Pulse Oximetry 92 L Oxygen Delivery Method 03/05/25 01:00 03/05/25 01:01 03/05/25 01:01 Temperature Pulse Rate 91 H 90 Respiratory Rate 18 18 Blood Pressure 102/48 O2 Sat by Pulse Oximetry 93 L 92 L Oxygen Delivery Method 03/05/25 02:00 03/05/25 02:00 03/05/25 03:00 Temperature Pulse Rate 87 88 Respiratory Rate 19 19 Blood Pressure 105/51 O2 Sat by Pulse Oximetry 93 L 97 Oxygen Delivery Method 03/05/25 03:00 03/05/25 04:01 03/05/25 04:01 Temperature 100.0 F H Pulse Rate 86 Respiratory Rate 24 Blood Pressure 147/67 115/54 O2 Sat by Pulse Oximetry 94 L Oxygen Delivery Method 03/05/25 04:35 03/05/25 05:00 03/05/25 05:00 Temperature Pulse Rate 74 Respiratory Rate 19 17 Blood Pressure 120/58 O2 Sat by Pulse Oximetry 92 L Oxygen Delivery Method 03/05/25 05:35 03/05/25 06:00 03/05/25 06:00 Temperature Pulse Rate 83 Respiratory Rate 19 18 Blood Pressure 121/56 O2 Sat by Pulse Oximetry 94 L Oxygen Delivery Method 03/05/25 06:19 03/05/25 07:00 03/05/25 07:00 Temperature 98.3 F Pulse Rate 69 Respiratory Rate 15 Blood Pressure 101/52 O2 Sat by Pulse Oximetry 93 L Oxygen Delivery Method 03/05/25 07:00 03/05/25 07:10 03/05/25 07:10 Temperature Pulse Rate 76 Respiratory Rate 21 Blood Pressure 101/53 O2 Sat by Pulse Oximetry 95 Oxygen Delivery Method Room Air 03/05/25 08:00 03/05/25 08:00 03/05/25 08:00 Temperature 99.0 F Pulse Rate 76 Respiratory Rate 20 Blood Pressure 101/53 83/46 83/46 O2 Sat by Pulse Oximetry 96 Oxygen Delivery Method Room Air 03/05/25 08:00 03/05/25 08:00 03/05/25 09:00 Temperature Pulse Rate 67 67 84 Respiratory Rate 16 16 22 Blood Pressure O2 Sat by Pulse Oximetry 93 L 93 L 98 Oxygen Delivery Method 03/05/25 09:00 03/05/25 10:00 03/05/25 10:00 Temperature Pulse Rate 76 Respiratory Rate 19 Blood Pressure 134/68 141/67 O2 Sat by Pulse Oximetry 97 Oxygen Delivery Method 03/05/25 11:00 03/05/25 11:00 03/05/25 11:55 Temperature Pulse Rate 73 Respiratory Rate 19 Blood Pressure 136/66 143/67 O2 Sat by Pulse Oximetry 96 Oxygen Delivery Method 03/05/25 11:55 03/05/25 12:00 03/05/25 12:29 Temperature 98.0 F Pulse Rate 73 72 75 Respiratory Rate 21 14 16 Blood Pressure 143/67 O2 Sat by Pulse Oximetry 97 98 98 Oxygen Delivery Method Room Air 03/05/25 13:05 03/05/25 14:00 03/05/25 15:02 Temperature Pulse Rate 81 76 76 Respiratory Rate 20 17 21 Blood Pressure O2 Sat by Pulse Oximetry 98 95 Oxygen Delivery Method 03/05/25 15:06 03/05/25 15:06 03/05/25 16:00 Temperature 98.1 F Pulse Rate 75 67 Respiratory Rate 24 14 Blood Pressure 133/71 122/67 O2 Sat by Pulse Oximetry 98 95 Oxygen Delivery Method Room Air 03/05/25 19:00 03/05/25 20:00 03/06/25 00:00 Temperature 98.0 F 98.6 F Pulse Rate 75 66 Respiratory Rate 19 13 Blood Pressure 154/70 150/72 O2 Sat by Pulse Oximetry 95 95 Oxygen Delivery Method Room Air Room Air Room Air 03/06/25 04:00 03/06/25 07:00 03/06/25 07:06 Temperature 98.3 F Pulse Rate 71 68 Respiratory Rate 15 13 Blood Pressure 110/58 O2 Sat by Pulse Oximetry 93 L 93 L Oxygen Delivery Method Room Air Room Air 03/06/25 07:22 03/06/25 07:22 03/06/25 08:00 Temperature 98.8 F Pulse Rate 80 67 Respiratory Rate 22 14 Blood Pressure 141/73 O2 Sat by Pulse Oximetry 96 95 Oxygen Delivery Method 03/06/25 08:00 Temperature Pulse Rate Respiratory Rate Blood Pressure 134/61 O2 Sat by Pulse Oximetry Oxygen Delivery Method Labs: Laboratory Last Values WBC 4.8 X10^3/uL (3.6-10.0) 03/06/25 04:53 RBC 4.10 X10^6/uL (4.7-6.0) L 03/06/25 04:53 Hgb 13.5 g/dL (13.5-18.0) 03/06/25 04:53 Hct 37.6 % (42.0-54.0) L 03/06/25 04:53 MCV 91.8 fL (80.0-100.0) 03/06/25 04:53 MCH 32.8 pg (27.0-34.0) 03/06/25 04:53 MCHC 35.8 g/dL (33.0-35.0) H 03/06/25 04:53 RDW 14.2 % (11.6-16.5) 03/06/25 04:53 Plt Count 129 X10^3/uL (150.0-450.0) L 03/06/25 04:53 Plt Count Comment Decreased (ADEQUATE) 03/06/25 04:53 MPV 8.0 fL (7.4-11.0) 03/06/25 04:53 Neut % (Auto) 42.7 % (42.0-75.0) 03/06/25 04:53 Lymph % (Auto) 32.8 % (21.0-51.0) 03/06/25 04:53 [place] % (Auto) 21.3 % (0.0-13.0) H 03/06/25 04:53 Eos % (Auto) 2.1 % (0.9-2.9) 03/06/25 04:53 Baso % (Auto) 1.1 % (0.2-1.0) H 03/06/25 04:53 Neut # (Auto) 2.0 x10^3/uL (2.2-4.8) L 03/06/25 04:53 Lymph # (Auto) 1.6 X10^3/uL (1.3-2.9) 03/06/25 04:53 [place] # (Auto) 1.0 x10^3/uL (0.3-0.8) H 03/06/25 04:53 Eos # (Auto) 0.1 x10^3/uL (0.0-0.2) 03/06/25 04:53 Baso # (Auto) 0.1 X10^3/uL (0.0-0.1) 03/06/25 04:53 Absolute Nucleated RBC 0.2 /100WBC 03/06/25 04:53 Total Counted 100 03/06/25 04:53 Neutrophils % (Manual) 47 % (39-76) 03/06/25 04:53 Band Neutrophils % 3 % (0-10) 03/05/25 04:21 Lymphocytes % (Manual) 37 % (13-43) 03/06/25 04:53 Monocytes % (Manual) 13 % (4-9) H 03/06/25 04:53 Eosinophils % (Manual) 3 % (0-6) 03/06/25 04:53 Plt Morphology Comment Normal (NORMAL) 03/06/25 04:53 RBC Morphology Normal (NORMAL) 03/06/25 04:53 PT 14.6 SECONDS (11.8-14.3) 03/04/25 16:41 INR Target Range - 03/04/25 16:41 INR 1.13 (0.8-1.3) 03/04/25 16:41 APTT 31.5 SECONDS (22.9-36.5) 03/04/25 16:41 PTT Comment - 03/04/25 16:41 Sodium 139 mmol/L (136-145) 03/06/25 04:53 Corrected Sodium TNP 03/06/25 04:53 Potassium 4.1 mmol/L (3.5-5.1) 03/06/25 04:53 Chloride 106 mmol/L (98-107) 03/06/25 04:53 Carbon Dioxide 25.3 mmol/L (21-32) 03/06/25 04:53 BUN 15 mg/dL (7-18) 03/06/25 04:53 Creatinine 1.33 mg/dL (0.70-1.30) H 03/06/25 04:53 Est GFR (MDRD) Af Amer > 60 (>60) 03/06/25 04:53 Est GFR (MDRD) Non-Af 55 (>60) L 03/06/25 04:53 Glucose 89 mg/dL (65-99) 03/06/25 04:53 Calcium 8.3 mg/dL (8.5-10.1) L 03/06/25 04:53 Corrected Calcium 9.0 mg/dL (8.5-10.1) 03/06/25 04:53 Magnesium 1.8 mg/dL (2.0-2.9) L 03/06/25 04:53 Total Bilirubin 0.40 mg/dL (0.2-1.0) 03/06/25 04:53 AST 30 Units/L (15-37) 03/06/25 04:53 ALT 20 Units/L (12-78) 03/06/25 04:53 Alkaline Phosphatase 58 Units/L (46-116) 03/06/25 04:53 Creatine Kinase 95 Units/L (39-308) 03/04/25 16:41 Troponin I High Sens 9.7 ng/L (4.0-60.0) 03/04/25 16:41 Total Protein 6.5 g/dL (6.4-8.2) 03/06/25 04:53 Albumin 3.1 g/dL (3.4-5.0) L 03/06/25 04:53 Globulin 3.4 g/dL (2.5-4.5) 03/06/25 04:53 Albumin/Globulin Ratio 0.9 Ratio (1.1-2.1) L 03/06/25 04:53 Specimen Type Clean catch urine 03/05/25 12:06 Urine Color Yellow (YELLOW) 03/05/25 12:06 Urine Appearance Clear (CLEAR) 03/05/25 12:06 Urine pH 6.0 (5.0 - 8.0) 03/05/25 12:06 Ur Specific [place] 1.015 (1.000-1.030) 03/05/25 12:06 Urine Protein 1+ (NEGATIVE) 03/05/25 12:06 Urine Glucose (UA) Negative (NEGATIVE) 03/05/25 12:06 Urine Ketones Negative (NEGATIVE) 03/05/25 12:06 Urine Blood 3+ (NEGATIVE) 03/05/25 12:06 Urine Nitrite Negative (NEGATIVE) 03/05/25 12:06 Urine Bilirubin Negative (NEGATIVE) 03/05/25 12:06 Urine Urobilinogen Normal (NORMAL) 03/05/25 12:06 Ur Leukocyte Esterase Negative (NEGATIVE) 03/05/25 12:06 Urine RBC 3-5 /HPF (0-3) A 03/05/25 12:06 Urine WBC 0-2 /HPF (0-5) 03/05/25 12:06 Ur Squamous Epith Cells Rare /HPF (NEGATIVE) 03/05/25 12:06 Urine Bacteria Negative /HPF (NEGATIVE) 03/05/25 12:06 Ur Culture Indicated? No/not indicated 03/05/25 12:06 Reason For Visit: TIA, EXPRESSIVE APHASIA Discharge Date Discharge Date: 03/06/25 Discharge Diagnosis All Active Problems (Updated 03/05/25 @ 10:55 by Kevin Ybarra MD) Pneumonia (Acute) Expressive aphasia (Acute) Brain TIA (Acute) Acute chest wall pain (Acute) Chest pain (Acute) Delirium (Acute) Abnormal kidney function (Acute) Acute dehydration (Acute) Diverticulosis (Acute) Abdominal pain (Acute) Chest pain (Acute) SOB (shortness of breath) (Acute) COVID-19 (Acute) Pneumonia due to COVID-19 virus (Acute) CHF (congestive heart failure) (Chronic) Essential hypertension (Chronic) Hypothyroidism (Chronic) Plan of Treatment: Continue with present treatment and follow up plan. Pt is to keep follow up appointment as instructed and take medications as ordered. Discharge Medications Discharge Medications: No Known Drug Allergies Allergy (Verified 03/04/25 15:53) CONTINUE taking the following medications albuterol sulfate 90 mcg/actuation aerosol inhaler 2 puff inhalation PRN PRN 03/04/25 [History] alprazolam 0.5 mg tablet 0.5 mg PO BID PRN 03/04/25 [History] dicyclomine 10 mg capsule 10 mg PO Q6H PRN 03/04/25 [History] fluorouracil 5 % topical cream 1 applic topical BID 03/04/25 [History] fluticasone propionate 50 mcg/actuation nasal spray,suspension 1 spray intranasal DAILY PRN 03/04/25 [History] nitroglycerin 0.4 mg sublingual tablet 0.4 mg sublingual QDAY PRN 03/04/25 [History] triamcinolone acetonide 0.1 % topical cream 1 applic topical BID-TID 03/04/25 [History] Discharge Plan Discharge Plan Hospital Course: Patient is a 79-year-old male with a past medical history of hypertension, hypothyroidism, CHF, Watchman device, neurostimulator, RANDY, admitted for TIA and pneumonia. CT of the brain was obtained that did not reveal any acute intracranial findings, chest x-ray bibasilar streaky opacities. CTA of the head and neck no evidence of large vessel occlusion or significant stenosis. Echo EF >70%. Patient received IV azithromycin for empiric treatment. Patient was back to baseline with no focal neurodeficits. AIT returned as COVID-19. Sputum culture was positive for Klebsiella oxytoca. He was discharged in stable condit ion. He will follow-up with a referral we will place to neurologyDr. Farley. Prescribed cefdinir. Instructed to follow-up with PCP in 1 week. Patient Disposition: 01 HOME, SELF-CARE Condition: Stable Health Concerns: Post Hospitalization: new medications and changes needed to prevent readmission or further decline. Pt educated and given instructions on all concerns. Care Plan Goals: Problem: Pain/Alteration in Comfort Goal: Improve/ Resolve Pain; Achieve Pain Tolerance Instructions: Take pain medications as prescribed. Contact your primary care provider if your pain is unrelieved or worsens. Follow up with primary care provider as directed. Plan of Treatment: Continue with present treatment and follow up plan. Pt is to keep follow up appointment as instructed and take medications as ordered. Prescriptions: New cefdinir 300 mg Capsule 300 mg PO BID 10 Days Qty: 20 0RF Continued pantoprazole 40 mg tablet,delayed release (DR/EC) 40 mg PO BID Qty: 60 0RF candesartan 16 mg tablet 16 mg PO BID levothyroxine 50 MCG tablet 50 mcg PO DAILY alprazolam 0.5 mg tablet 0.5 mg PO BID PRN fluorouracil 5 % cream 1 applic TOPICAL BID Rx Instructions: Uses with Triamcinolone Acetonide 0.1% cream. Uses for 2 weeks and off for 2 weeks. Currently in the off time. Will resume in 1 week. triamcinolone acetonide 0.1 % cream 1 applic TOPICAL BID-TID Rx Instructions: Uses with Fluorouracil 5% cream. Uses for 2 weeks and off for 2 weeks. Currently in the off time. Will resume in 1 week. nitroglycerin 0.4 mg tablet, sublingual 0.4 mg sublingual QDAY PRN albuterol sulfate 90 mcg/actuation HFA aerosol inhaler 2 puff inhalation PRN PRN fluticasone propionate 50 mcg/actuation spray,suspension 1 spray INTRANASAL DAILY PRN dicyclomine 10 mg capsule 10 mg PO Q6H PRN metoprolol tartrate 25 mg tablet 25 mg PO BID aspirin 81 mg Tablet,Delayed Release (Dr/Ec) 81 mg PO DAILY multivitamin Tablet 1 tab PO DAILY nitroglycerin 0.2 mg/hr Patch 24 Hour 0.2 mg transdermal DAILY Rx Instructions: on in am for 12 hours and off for 12 hours in pm Orders to Discharge Patient Discharge Orders: Discharge (Routine); Ordered 03/06/25 Ordered By: Kevin Ybarra Follow ups/Referrals Follow ups/Referrals: MCKENZIE FARLEY [REFERRING, MEDICAL] - 1 WEEK Referral Note: they will call patient with appoiment information sent BARBARA BHATTI [Primary Care Provider, MEDICAL] - 03/12/25 2:00 pm Instructions Instructions: Aphasia, Ischemic Stroke Stand Alone Forms: Excuse From Work or School, Find Help Web Site, Post Hospital Follow Up Care Print Language: [place]
== END 2025-03-06 11:30 | disposition home or self-care (01) ==
LOC: ICU 15:32 → ER 15:32 → ICU 19:53
PROVIDERS: ADMIT Family Medicine; ATTEND Family Medicine
DX: Z16.11 Resistance to penicillins; E03.8 Other specified hypothyroidism; E83.42 Hypomagnesemia; R51.9 Headache, unspecified; R94.4 Abnormal results of kidney function studies; E86.0 Dehydration; B96.89 Other specified bacterial agents as the cause of diseases classified elsewhere; J12.82 Pneumonia due to coronavirus disease 2019; R47.01 Aphasia; R94.31 Abnormal electrocardiogram [ECG] [EKG]; E83.51 Hypocalcemia; Z95.818 Presence of other cardiac implants and grafts; Z96.82 Presence of neurostimulator; U07.1 COVID-19; R41.0 Disorientation, unspecified; G45.8 Other transient cerebral ischemic attacks and related syndromes; I10 Essential (primary) hypertension; Z16.19 Resistance to other specified beta lactam antibiotics; F41.8 Other specified anxiety disorders; Z86.79 Personal history of other diseases of the circulatory system